=== PATIENT | female | born 1950 | race Caucasian/White ===

== ENCOUNTER 2017-12-17 15:53 | Emergency (ER) | payer OTHER ==
[~2017-12-17] VITALS: Ht 167.6 cm; Wt 81.6 kg
[2017-12-17 16:00] VITALS: BP_SYST 163
[2017-12-17] MEDS ORDERED: DIPHENHYDRAMINE HCL 25 MG CAPSULE PO ONE (16:15)
[2017-12-17 16:20] LABS: BILIRUBIN,URINE NEGATIVE (NEGATIVE); CLARITY/URINE CLOUDY (CLEAR); COLOR,URINE YELLOW (YELLOW); GLUCOSE,URINE NEGATIVE (NEGATIVE); KETONES,URINE TRACE (NEGATIVE); LEUKOCYTE ESTERASE ,URINE 3+ (NEGATIVE); NITRITE, URINE NEGATIVE (NEGATIVE); PROTEIN URINE 1+ (NEGATIVE); UROBILINOGEN,URINE 0.2 (0.2-1.0)
[2017-12-17 16:23] LABS: BLOOD, URINE TRACE (NEGATIVE)
[2017-12-17 16:40] LABS: BACTERIA,URINE MODERATE /HPF (None Seen); WBC,URINE >100 /HPF (0-3)
[2017-12-17 16:56] LABS: BARBITURATE, URINE NEGATIVE (NEG <=200); BENZODIAZEPINE, URINE NEGATIVE (NEG <=150); CANNABINOID, URINE NEGATIVE (NEG <=50); COCAINE, URINE NEGATIVE (NEG <=150); METHAMPHETAMINES SCREEN,URINE NEGATIVE (NEG <=500); OPIATE, URINE NEGATIVE (NEG <=100); PHENCYCLIDINE SCREEN,URINE NEGATIVE (NEG <=25); UR TRICYCLIC ANTIDEPRESSANTS NEGATIVE (NEG <=300); URINE AMPHETAMINE NEGATIVE (NEG <=500); URINE METHADONE NEGATIVE (NEG <=200); URINE OXYCODONE SCREEN NEGATIVE (NEG <=100); URINE PROPOXYPHENE SCREEN NEGATIVE (NEG <=300)
[2017-12-17 16:59] LABS: BASOPHILS % (AUTO) 0.4 % (0.0-2.0); EOSINOPHILS # (AUTO) 0.1 K/uL (0.0-0.4); EOSINOPHILS % (AUTO) 2.6 % (0.0-4.0); HEMATOCRIT 33.1 % (36-48); HEMOGLOBIN 11.4 g/dL (12.0-16.0); LYMPHOCYTES # (AUTO) 0.6 K/uL (1.0-5.5); LYMPHOCYTES % (AUTO) 11.7 % (20.5-51.5); MEAN CORPUSCULAR HEMOGLOBIN 31 pg (27-31); MEAN CORPUSCULAR HGB CONC 34 % (32-36); MEAN CORPUSCULAR VOLUME 89 fL (79.0-98.0); MONOCYTES # (AUTO) 0.4 K/uL (0.0-1.0); MONOCYTES % (AUTO) 7.9 % (1.7-9.3); NEUTROPHILS # (AUTO) 4.2 K/uL (1.8-7.7); NEUTROPHILS % (AUTO) 77.4 % (40.0-70.0); PLATELET COUNT (AUTO) 188 K/uL (130-430); RED BLOOD CELL COUNT(AUTO) 3.73 MIL/uL (4.2-6.2); WHITE BLOOD COUNT (AUTO) 5.3 K/uL (4.8-10.8)
[2017-12-17 17:07] LABS: CALCIUM 9.2 mg/dL (8.4-11.0); CREATININE 0.96 mg/dL (0.55-1.30); POTASSIUM 4.2 mmol/L (3.5-5.1)
[2017-12-17 17:11] LABS: ALBUMIN 3.5 g/dL (3.4-4.8); TOTAL BILIRUBIN 0.5 mg/dL (0.0-1.0)
[2017-12-17 17:13] LABS: PROTHROMBIN TIME 10.6 SECS (9.5-12.5)
[2017-12-17] MEDS ORDERED: cefTRIAXone 1 GM in LIDOCAINE 1%, 20 ML MDV 2.1 ML IM ONE (17:45)
[2017-12-17 18:35] VITALS: BP_SYST 146
== END 2017-12-17 18:35 | disposition home or self-care (01) ==
LOC: SED 15:53
DX: N39.0 Urinary tract infection, site not specified (principal); F32.9 Major depressive disorder, single episode, unspecified; I10 Essential (primary) hypertension
CPT/HCPCS: 36415; 70450; 71045; 80053; 80307; 81000; 84484; 85025; 85610; 85730; 87086; 87186; 93005; 96372; 99285; G0481; J0696; J2001; Q0163

== ENCOUNTER 2019-05-27 18:51 | Emergency (ER) | payer OTHER, MEDICAID ==
[~2019-05-27] VITALS: Ht 167.6 cm; Wt 73.5 kg
[2019-05-27 19:10] VITALS: BP_SYST 151
--- NOTE | 2019-05-27 19:10 | NUR ---
PAtient waiting for placement in [facility]
--- NOTE | 2019-05-27 19:22 | NUR ---
Patient to ER bed 06 to gown for evaluation. Side rails up. Report given to ARMANDO Kim
--- NOTE | 2019-05-27 19:30 | NUR ---
Pt was BIB BLS for medical clearance. Per facility, pt has increase in depression and tends to isolate herself from others. Pt denies pain, N/V, fever. Per pt, "I'm very shakey and my back itches." No other injuries/complaints per patient or noted.
[2019-05-27 20:37] LABS: BASOPHILS % (AUTO) 0.9 % (0.0-2.0); EOSINOPHILS % (AUTO) 0.9 % (0.0-4.0); HEMATOCRIT 36.1 % (36-48); HEMOGLOBIN 12.1 g/dL (12.0-16.0); LYMPHOCYTES # (AUTO) 0.5 K/uL (1.0-5.5); LYMPHOCYTES % (AUTO) 9.5 % (20.5-51.5); MEAN CORPUSCULAR HEMOGLOBIN 32 pg (27-31); MEAN CORPUSCULAR HGB CONC 34 % (32-36); MEAN CORPUSCULAR VOLUME 95 fL (79.0-98.0); MONOCYTES # (AUTO) 0.3 K/uL (0.0-1.0); MONOCYTES % (AUTO) 6.8 % (1.7-9.3); NEUTROPHILS # (AUTO) 4.2 K/uL (1.8-7.7); NEUTROPHILS % (AUTO) 81.9 % (40.0-70.0); PLATELET COUNT (AUTO) 199 K/uL (130-430); RED BLOOD CELL COUNT(AUTO) 3.79 MIL/uL (4.2-6.2); RED CELL DISTRIBUTION WIDTH 14.5 % (9.0-15.0); WHITE BLOOD COUNT (AUTO) 5.1 K/uL (4.8-10.8)
[2019-05-27 20:48] LABS: ANION GAP 5 (5-15); CALCIUM 8.9 mg/dL (8.4-11.0); CHLORIDE 106 mmol/L (98-107); CREATININE 0.95 mg/dL (0.55-1.30); GLUCOSE 112 mg/dL (70-99); POTASSIUM 4.5 mmol/L (3.5-5.1); SODIUM SERUM 140 mmol/L (136-145); UREA NITROGEN, BLOOD 26 mg/dL (8-21)
[2019-05-27 20:52] LABS: GFR AFRICAN AMERICAN 75 mL/min (>90)
[2019-05-27 20:54] LABS: ALANINE AMINOTRANSFERASE 84 U/L (12-78); ALBUMIN 3.1 g/dL (3.4-4.8); ASPARTATE AMINOTRANSFERASE 66 U/L (10-37); TOTAL BILIRUBIN 0.4 mg/dL (0.0-1.0)
[2019-05-27 20:55] LABS: ACETAMINOPHEN < 1 ug/mL (1-30); ALCOHOL, BLOOD < 3 mg/dL (<10)
--- NOTE | 2019-05-27 21:24 | NUR ---
MRSA specimen was collected and sent to lab.
[2019-05-27 21:41] LABS: BARBITURATE, URINE NEGATIVE (NEG <=200); BENZODIAZEPINE, URINE NEGATIVE (NEG <=150); CANNABINOID, URINE NEGATIVE (NEG <=50); COCAINE, URINE NEGATIVE (NEG <=150); METHAMPHETAMINES SCREEN,URINE NEGATIVE (NEG <=500); OPIATE, URINE NEGATIVE (NEG <=100); PHENCYCLIDINE SCREEN,URINE NEGATIVE (NEG <=25); UR TRICYCLIC ANTIDEPRESSANTS NEGATIVE (NEG <=300); URINE AMPHETAMINE NEGATIVE (NEG <=500); URINE METHADONE NEGATIVE (NEG <=200); URINE OXYCODONE SCREEN NEGATIVE (NEG <=100); URINE PROPOXYPHENE SCREEN NEGATIVE (NEG <=300)
[2019-05-27 22:09] LABS: BILIRUBIN,URINE NEGATIVE (NEGATIVE); BLOOD, URINE NEGATIVE (NEGATIVE); CLARITY/URINE CLEAR (CLEAR); COLOR,URINE YELLOW (YELLOW); GLUCOSE,URINE NEGATIVE (NEGATIVE); KETONES,URINE NEGATIVE (NEGATIVE); NITRITE, URINE NEGATIVE (NEGATIVE); PH,URINE 6.5 (5.0-8.0); PROTEIN URINE NEGATIVE (NEGATIVE); UROBILINOGEN,URINE 0.2 (0.2-1.0)
[2019-05-27 22:18] LABS: LEUKOCYTE ESTERASE ,URINE TRACE (NEGATIVE)
[2019-05-27 22:20] LABS: BACTERIA,URINE FEW /HPF (None Seen); MUCUS,URINE None Seen /LPF (None Seen); RBC,URINE NONE SEEN /HPF (0-3)
--- NOTE | 2019-05-27 22:25 | NUR ---
ER Dr. Stewart at bedside examining patient.
[2019-05-27 23:11] VITALS: BP_SYST 135
--- NOTE | 2019-05-27 23:14 | NUR ---
Patient to be transferred to [facility]. Is being transferred due to higher level of care. Receiving facility has accepting physician and available space. ER physician has signed transfer form. Patient or responsible democrat has agreed to transfer and signed form. Patient belongings inventoried and will be sent with patient. Copy of nursing notes, lab reports, EKG, Physicians Orders and X-rays to be sent with patient. Report called to Allyssa at receiving facility. Receiving physician is Dr. Peace and Dr. Dillon. [facility] ambulance service has been called for transfer. ETA is [id number]. VSS
== END 2019-05-27 23:14 ==
LOC: SED 18:51
DX: F32.9 Major depressive disorder, single episode, unspecified (principal); I10 Essential (primary) hypertension; Z90.49 Acquired absence of other specified parts of digestive tract
CPT/HCPCS: 36415; 71045; 80053; 80307; 81000; 85025; 87081; 93005; 99285; G0480; G0481; G0482

== ENCOUNTER 2019-05-28 14:09 | Outpatient (CLI) | payer OTHER, MEDICAID ==
[2019-05-28 14:16] LABS: CHOLESTEROL 159 mg/dL (<200); HDL CHOLESTEROL 46 mg/dL (>55); LDL CHOLESTEROL 94 mg/dL (<100); TRIGLYCERIDES 107 mg/dL (30-150)
== END 2019-05-28 20:17 | disposition home or self-care (01) ==
LOC: SLB 14:09
DX: Z00.00 Encounter for general adult medical examination without abnormal findings (principal); R79.89 Other specified abnormal findings of blood chemistry
CPT/HCPCS: 36415; 80061; 83036

== ENCOUNTER 2019-07-10 16:31 | Inpatient (IN) | payer OTHER, MEDICAID ==
[~2019-07-10] VITALS: Ht 170.2 cm; Wt 99.3 kg
[2019-07-10 16:40] VITALS: BP_SYST 147
--- NOTE | 2019-07-10 17:25 | NUR ---
Patient is awake, alert, and oriented x4. foreman shipping department is at bedside. Caregiver states they were at [facility] and were instructed to come in to rule out DVT. Patient is complaining of SOB, 02 sat is 98% on room air. Patient presents with BLE 3+ pitting edema.
[2019-07-10 17:38] LABS: BILIRUBIN,URINE NEGATIVE (NEGATIVE); BLOOD, URINE 1+ (NEGATIVE); CLARITY/URINE SL CLOUDY (CLEAR); COLOR,URINE YELLOW (YELLOW); GLUCOSE,URINE NEGATIVE (NEGATIVE); KETONES,URINE TRACE (NEGATIVE); LEUKOCYTE ESTERASE ,URINE 2+ (NEGATIVE); NITRITE, URINE POSITIVE (NEGATIVE); PROTEIN URINE 2+ (NEGATIVE); UROBILINOGEN,URINE 0.2 (0.2-1.0)
[2019-07-10] MEDS ORDERED: IBUPROFEN 400 MG TABLET PO ONE (17:45)
[2019-07-10 17:54] LABS: BACTERIA,URINE MANY /HPF (None Seen); MUCUS,URINE None Seen /LPF (None Seen); RBC,URINE 0-3 /HPF (0-3); WBC,URINE >100 /HPF (0-3)
--- NOTE | 2019-07-10 17:54 | NUR ---
3 unsuccessful IV attempts made. Renetta Tellez RN made aware.
--- NOTE | 2019-07-10 17:55 | NUR ---
Plebotomy at bedside.
--- NOTE | 2019-07-10 18:00 | NUR ---
US tech at bedside.
[2019-07-10 18:25] LABS: BASOPHILS % (AUTO) 0.2 % (0.0-2.0); EOSINOPHILS # (AUTO) 0.1 K/uL (0.0-0.4); HEMATOCRIT 26.9 % (36-48); HEMOGLOBIN 9.2 g/dL (12.0-16.0); LYMPHOCYTES # (AUTO) 0.4 K/uL (1.0-5.5); LYMPHOCYTES % (AUTO) 6.8 % (20.5-51.5); MEAN CORPUSCULAR HEMOGLOBIN 33 pg (27-31); MEAN CORPUSCULAR HGB CONC 34 % (32-36); MEAN CORPUSCULAR VOLUME 96 fL (79.0-98.0); MONOCYTES # (AUTO) 0.8 K/uL (0.0-1.0); MONOCYTES % (AUTO) 12.9 % (1.7-9.3); NEUTROPHILS # (AUTO) 4.7 K/uL (1.8-7.7); NEUTROPHILS % (AUTO) 79.1 % (40.0-70.0); PLATELET COUNT (AUTO) 235 K/uL (130-430); RED BLOOD CELL COUNT(AUTO) 2.82 MIL/uL (4.2-6.2); RED CELL DISTRIBUTION WIDTH 13.4 % (9.0-15.0); WHITE BLOOD COUNT (AUTO) 5.9 K/uL (4.8-10.8)
[2019-07-10] MEDS ORDERED: LEVOFLOXACIN 500 MG/D5W 100 ML IV ONE (18:30)
[2019-07-10 18:38] LABS: PROTHROMBIN TIME 10.3 SECS (9.5-12.5)
[2019-07-10 18:40] LABS: CALCIUM 8.3 mg/dL (8.4-11.0); CREATININE 0.93 mg/dL (0.55-1.30); POTASSIUM 3.4 mmol/L (3.5-5.1)
[2019-07-10 18:47] LABS: ALBUMIN 2.9 g/dL (3.4-4.8); TOTAL BILIRUBIN 0.6 mg/dL (0.0-1.0)
--- NOTE | 2019-07-10 19:28 | NUR ---
Patient will be admitted to care of Dr. Huston. Admitted to telemetry unit. Waiting for room assignment. Belongings list completed.
--- NOTE | 2019-07-10 19:30 | NUR ---
RECIEVED REPORT FROM 7 AM RN. PT IN NAD. PENDING ADMIT DISPOSITION.
--- NOTE | 2019-07-10 19:30 | NUR ---
All care endorsed to ARMANDO Cho for continuation of care.
[2019-07-10] MEDS ORDERED: NACL 0.9% 3,000 ML IV ONE (20:00)
--- NOTE | 2019-07-10 20:22 | NUR ---
Per Telemetry floor, patient to go to room 119B. Give 15 minutes before taking, they are getting the room ready.
--- NOTE | 2019-07-10 20:25 | NUR ---
Patient will be admitted to care of Radha ROBERTS. Admitted to MST unit. Will go to room 119. Belongings list completed. Complete and up to date summary report printed. SBAR Report called to MST unit RN x [phone] with opportunity for questions. Patient taken to floor by nursing material handling crew supervisor.
--- NOTE | 2019-07-10 20:40 | NUR ---
ADMISSION NOTE Received patient from ER via gurney. Patient admitted with diagnosis of uti, sepsis. Patient oriented to hospital room, call light, toileting, pain management and safety-teach back done. Personal belongings checked and Belongings List documented. Call light within reach.
[2019-07-10 21:10] VITALS: BP_SYST 125
--- NOTE | 2019-07-10 21:26 | NUR ---
Patient admitted to 119B. No acute distress noted. Skin warm dry and intact. Rash noted to patient's skin over the entire body. No complaint of pain or discomfort. Will continue to monitor.
[2019-07-10] MEDS ORDERED: ASCO500T20 PO (22:39)
[2019-07-10] MEDS ORDERED: SERT-131 PO (22:39)
[2019-07-10] MEDS ORDERED: LOVA40TA75 PO (22:39)
[2019-07-10] MEDS ORDERED: LISI10TA5 PO (22:39)
[2019-07-10] MEDS ORDERED: ONDANSETRON HCL 4 MG/2 ML VIAL IVP PRN (23:15)
[2019-07-10] MEDS ORDERED: ACETAMINOPHEN 325 MG TABLET PO PRN (23:15)
[2019-07-10] MEDS ORDERED: cefTRIAXone 1 GM IVPB PREMIX 50 ML IV SCH (23:15)
[2019-07-10] MEDS ORDERED: OMEP20CA11 PO (23:35)
[2019-07-10] MEDS ORDERED: HYDC1% TP (23:35)
[2019-07-10] MEDS ORDERED: CLOB15CR4 TP (23:35)
[2019-07-11 00:12] VITALS: BP_SYST 103
[2019-07-11 00:32] VITALS: BP_SYST 103
[2019-07-11] MEDS ORDERED: cefTRIAXone 1 GM IVPB PREMIX 50 ML IV ONE (00:38)
[2019-07-11] MEDS ORDERED: FLU VACC TS2019(65UP)/MF59C/PF 45 MCG/0.5 ML SYRINGE I.M. PRN (03:45)
[2019-07-11] MEDS: HYDROcodone/ACETAMIN 10-325 MG TAB PO PRN ×2 (04:49→12:35)
[2019-07-11 06:48] LABS: ALANINE AMINOTRANSFERASE 54 U/L (12-78); ALBUMIN 2.5 g/dL (3.4-4.8); ANION GAP 9 (5-15); ASPARTATE AMINOTRANSFERASE 39 U/L (10-37); CALCIUM 7.9 mg/dL (8.4-11.0); CHLORIDE 104 mmol/L (98-107); CREATININE 0.88 mg/dL (0.55-1.30); GLUCOSE 95 mg/dL (70-99); POTASSIUM 3.5 mmol/L (3.5-5.1); SODIUM SERUM 139 mmol/L (136-145); TOTAL BILIRUBIN 0.6 mg/dL (0.0-1.0); UREA NITROGEN, BLOOD 12 mg/dL (8-21)
[2019-07-11 07:09] LABS: BASOPHILS % (AUTO) 0.2 % (0.0-2.0); EOSINOPHILS # (AUTO) 0.1 K/uL (0.0-0.4); EOSINOPHILS % (AUTO) 1.2 % (0.0-4.0); HEMATOCRIT 25.6 % (36-48); HEMOGLOBIN 8.7 g/dL (12.0-16.0); LYMPHOCYTES # (AUTO) 0.2 K/uL (1.0-5.5); LYMPHOCYTES % (AUTO) 4.8 % (20.5-51.5); MEAN CORPUSCULAR HEMOGLOBIN 33 pg (27-31); MEAN CORPUSCULAR HGB CONC 34 % (32-36); MEAN CORPUSCULAR VOLUME 96 fL (79.0-98.0); MONOCYTES # (AUTO) 0.7 K/uL (0.0-1.0); MONOCYTES % (AUTO) 14.9 % (1.7-9.3); NEUTROPHILS # (AUTO) 3.9 K/uL (1.8-7.7); NEUTROPHILS % (AUTO) 78.9 % (40.0-70.0); PLATELET COUNT (AUTO) 190 K/uL (130-430); RED BLOOD CELL COUNT(AUTO) 2.68 MIL/uL (4.2-6.2); RED CELL DISTRIBUTION WIDTH 13.6 % (9.0-15.0); WHITE BLOOD COUNT (AUTO) 4.9 K/uL (4.8-10.8)
[2019-07-11 07:17] LABS: INR 1.1 (0.8-1.2); PROTHROMBIN TIME 10.8 SECS (9.5-12.5)
[2019-07-11 07:21] LABS: GFR AFRICAN AMERICAN 82 mL/min (>90)
[2019-07-11 08:05] LABS: TOTAL IRON BIND. CAPACITY 217 ug/dL (250-450)
[2019-07-11 08:10] VITALS: BP_SYST 134
[2019-07-11] MEDS: SERTRALINE HCL 50 MG TABLET PO SCH (09:59)
[2019-07-11] MEDS: cefTRIAXone 1 GM IVPB PREMIX 50 ML IV SCH ×2 (10:00→22:58)
[2019-07-11] MEDS: LISINOPRIL 10 MG TABLET (PRINIVIL) PO SCH (10:00)
[2019-07-11] MEDS: ENOXAPARIN SODIUM 40 MG/0.4 ML SYRINGE SUBCUT SCH (10:03)
[2019-07-11 12:35] VITALS: BP_SYST 90
[2019-07-11 16:05] VITALS: BP_SYST 107
[2019-07-11] MEDS: ATORVASTATIN 10 MG TABLET PO SCH (17:52)
--- NOTE | 2019-07-11 17:53 | NUR ---
Routine Patient eating dinner with no complaint of leg pain. Scheduled medication given. Patient stable at this time.
[2019-07-11] MEDS ORDERED: LOVASTATIN 20 MG TABLET PO SCH (18:00)
[2019-07-12] MEDS: cefTRIAXone 1 GM IVPB PREMIX 50 ML IV SCH ×2 (08:49→20:29)
[2019-07-12] MEDS: LISINOPRIL 10 MG TABLET (PRINIVIL) PO SCH (08:49)
[2019-07-12] MEDS: SERTRALINE HCL 50 MG TABLET PO SCH (08:49)
--- NOTE | 2019-07-12 08:50 | NUR ---
Routine Patient eating breakfast with no complaint of leg pain. Scheduled po meds and IV abx given per order. Patient stable at this time.
[2019-07-12] MEDS: ENOXAPARIN SODIUM 40 MG/0.4 ML SYRINGE SUBCUT SCH (08:54)
[2019-07-12 08:55] VITALS: BP_SYST 100
[2019-07-12 12:29] VITALS: BP_SYST 138
--- NOTE | 2019-07-12 15:56 | NUR ---
Dietitian Recommendations * Recommend continuing cardiac diet * Encourage increase PO intakes LP, RD Please refer to Nutrition Assessment for details. Addendum: 07/12/19 at [address] Amended: Links added.
--- NOTE | 2019-07-12 16:35 | NUR ---
Routine Patient asleep with no distress noted. Patient stable at this time.
[2019-07-12 16:38] VITALS: BP_SYST 134; BP_SYST 152
[2019-07-12] MEDS: ATORVASTATIN 10 MG TABLET PO SCH (17:31)
--- NOTE | 2019-07-12 17:32 | NUR ---
Routine Patient resting comfortably in bed with no complaint of leg pain. Scheduled medication given per order. Patient stable at this time.
--- NOTE | 2019-07-12 19:30 | NUR ---
OPENING NOTES Patient is resting, no signs of acute respiratory distress. IV site patent, dressings c/d/i. Will continue to monitor.
[2019-07-12 20:00] VITALS: BP_SYST 144
--- NOTE | 2019-07-12 20:21 | NUR ---
PHYSICAL THERAPY CO-SIGN The Physical Therapy Progress Notes documented by Engineering Technician Parking have been reviewed. Reviewed/Co-Signed by: Moni Jhaveri PT Documentation Done by:ALEXSANDRA PEDRO EMERGENCY PREPAREDNESS COORDINATOR WILL BENEFIT W/ P.T. POST ACUTE STAY Addendum: 07/13/19 at 1329 by Moni Jhaveri PT Amended: Links added.
[2019-07-12] MEDS: HYDROcodone/ACETAMIN 10-325 MG TAB PO PRN (20:42)
--- NOTE | 2019-07-12 22:40 | NUR ---
Patient is restless, assisted to bedpan and wants to go to the restroom, but patient states that she does not feel like getting up. Will continue to monitor.
[2019-07-13] VITALS: BP_SYST 96
--- NOTE | 2019-07-13 01:20 | NUR ---
Assisted patient to bedpan, adonay care provided. Will continue to monitor.
[2019-07-13] MEDS: ALBUTEROL SULFATE 0.083% 2.5 MG/3 ML VIAL.NEB INH PRN (03:54)
--- NOTE | 2019-07-13 07:30 | NUR ---
CLOSING NOTES Patient is resting, no signs of acute respiratory distress. IV site, dressings c/d/i, patent, saline lock. All needs met throughout shift. Will continue to monitor.
--- NOTE | 2019-07-13 07:35 | NUR ---
Opening Note Patient received resting comfortably in bed @ this time. Patient in no signs of distress. Patient does not complain of pain. Patient assessed and reinforced education regarding use of call light. Safety precautions enforced.
[2019-07-13 08:00] VITALS: BP_SYST 160
[2019-07-13] MEDS: SERTRALINE HCL 50 MG TABLET PO SCH (09:28)
[2019-07-13] MEDS: ENOXAPARIN SODIUM 40 MG/0.4 ML SYRINGE SUBCUT SCH (09:28)
[2019-07-13] MEDS: cefTRIAXone 1 GM IVPB PREMIX 50 ML IV SCH ×2 (09:29→20:38)
[2019-07-13] MEDS: LISINOPRIL 10 MG TABLET (PRINIVIL) PO SCH (09:29)
--- NOTE | 2019-07-13 10:00 | NUR ---
Patient resting in bed at this time with no signs of distress noted. Patient does not complain of pain.
[2019-07-13 12:00] VITALS: BP_SYST 121
--- NOTE | 2019-07-13 12:00 | NUR ---
Patient resting in bed at this time. A right wrist 22 gauge IV inserted and is patent, flushing well, and saline locked. Patient does not complain of pain. Patient in no signs of distress.
--- NOTE | 2019-07-13 13:31 | NUR ---
PHYSICAL THERAPY CO-SIGN The Physical Therapy Progress Notes documented by Band Cutting Machine Operator have been reviewed. Reviewed/Co-Signed by: Moni Jhaveri PT Documentation Done by:ALEXSANDRA PEDRO COTTON WASHER WILL BENEFIT W/ P.T. POST ACUTE STAY Addendum: 07/13/19 at 1332 by Moni Jhaveri PT Amended: Links added.
--- NOTE | 2019-07-13 14:00 | NUR ---
Patient sleeping at this time. Patient does not complain of pain. Patient reoriented to the use of call light if in need to ambulate to the bathroom. Patient verbalized understanding.
--- NOTE | 2019-07-13 16:00 | NUR ---
Patient resting comfortably. Patient assisted to ADLs. Patient in no signs of distress.
[2019-07-13 16:08] VITALS: BP_SYST 135
[2019-07-13] MEDS: ATORVASTATIN 10 MG TABLET PO SCH (17:23)
--- NOTE | 2019-07-13 18:41 | NUR ---
Closing Note Patient resting comfortably in bed. Patient in no signs of distress. Patient does not complain of pain.
--- NOTE | 2019-07-13 19:21 | NUR ---
Endorsement Patient endorsed to overnight babysitter RN using SBAR format.
--- NOTE | 2019-07-13 19:22 | NUR ---
OPENING NOTE RECEIVED CARE OF PT AND SBAR REPORT. PT IS RESTING IN BED, NO S/S OF ACUTE DISTRESS, BREATHING IS UNLABORED TO ROOM AIR, NO SOB NOTED. IV IS SALINE LOCKED. SKIN IS WARM AND DRY TO TOUCH. SAFETY AND FALL PRECAUTIONS ARE IN PLACE:BED IS LOCKED IN LOWEST POSITION, SIDE RAILS X2, CALL LIGHT WITH PT, BED ALARM ON. WILL MONITOR.
[2019-07-13 20:00] VITALS: BP_SYST 128
[2019-07-13] MEDS: HYDROcodone/ACETAMIN 10-325 MG TAB PO PRN (20:46)
--- NOTE | 2019-07-13 20:48 | NUR ---
FLU SHOT/NORCO PT GIVEN FLU SHOT PER REQUEST. PT ALSO GIVEN NORCO 10-325 MG PO FOR REPORT OF SEVERE ABDOMINAL PAIN. MEDICATION ACTIONS AND POTENTIAL SIDE EFFECTS DISCUSSED. PT CONFUSED. PT BROUGHT FRESH ICE WATER PER REQUEST. PT DENIES FURTHER NEEDS AT THIS TIME. SAFETY PRECAUTIONS IN PLACE. WILL MONITOR.
--- NOTE | 2019-07-13 22:50 | NUR ---
RESTING PT RESTING IN BED, NO S/S OF ACUTE DISTRESS, BREATHING IS UNLABORED TO ROOM AIR. PT APPEARS COMFORTABLE AT THIS TIME, NO SIGNS OF PAIN OR DISCOMFORT. SAFETY PRECAUTIONS MAINTAINED. WILL MONITOR.
--- NOTE | 2019-07-14 00:53 | NUR ---
SLEEPING PT RESTING IN BED, NO S/S OF ACUTE DISTRESS, VISIBLE SYMMETRICAL RISE AND FALL OF CHEST NOTED, BREATHING IS UNLABORED TO ROOM AIR. PT APPEARS COMFORTABLE AT THIS TIME WITH NO SIGNS OF PAIN OR DISCOMFORT. SAFETY PRECAUTIONS OBSERVED. WILL MONITOR.
[2019-07-14 01:28] VITALS: BP_SYST 110
--- NOTE | 2019-07-14 02:53 | NUR ---
AMBULATED TO RESTROOM PT AMBULATED TO RESTROOM WITH NURSE ASSIST. PT'S GAIT NOTED TO BE STEADY. PT RETURNED TO BED AND ABLE TO REPOSITION HERSELF FOR COMFORT. PT TOLERATED ACTIVITY WELL. NO S/S OF DISTRESS. NO SOB NOTED. SAFETY AND FALL PRECAUTIONS ARE IN PLACE. BED ALARM IS ON. WILL MONITOR.
[2019-07-14] MEDS: HYDROcodone/ACETAMIN 5-325 MG TAB (NORCO/ VICODIN) PO PRN ×2 (04:34→13:32)
[2019-07-14] MEDS: ALBUTEROL SULFATE 0.083% 2.5 MG/3 ML VIAL.NEB INH PRN ×3 (04:36→13:23)
--- NOTE | 2019-07-14 04:40 | NUR ---
PAIN/BREATHING TREATMENT. PT GIVEN NORCO 5-325 MG PO FOR REPORT OF MODERATE PAIN TO BILATERAL LEGS. PT ALSO REPORTING SOB. RESPIRATORY THERAPIST CALLED FOR BREATHING TREATMENT. SAFETY MAINTAINED. WILL MONITOR.
--- NOTE | 2019-07-14 06:53 | NUR ---
CLOSING NOTE PT IS RESTING IN BED, NO S/S OF ACUTE DISTRESS, BREATHING IS UNLABORED TO ROOM AIR, NO SOB NOTED. IV IS SALINE LOCKED. SKIN IS WARM AND DRY TO TOUCH. SAFETY AND FALL PRECAUTIONS ARE IN PLACE:BED IS LOCKED IN LOWEST POSITION, SIDE RAILS X2, CALL LIGHT WITH PT, BED ALARM ON. WILL ENDORSE CARE TO DAY SHIFT RN.
--- NOTE | 2019-07-14 07:15 | NUR ---
AM ASSESSMENT Pt received from night RN using SBAR. Pt received laying in bed with eyes open. Bed in lowest position with call light within reach, no signs of acute distress. Will continue to monitor.
[2019-07-14 08:00] VITALS: BP_SYST 141
[2019-07-14] MEDS: SERTRALINE HCL 50 MG TABLET PO SCH (08:44)
[2019-07-14] MEDS: cefTRIAXone 1 GM IVPB PREMIX 50 ML IV SCH (08:44)
[2019-07-14] MEDS: LISINOPRIL 10 MG TABLET (PRINIVIL) PO SCH (08:44)
[2019-07-14] MEDS: HYDROcodone/ACETAMIN 10-325 MG TAB PO PRN (08:45)
[2019-07-14] MEDS: ENOXAPARIN SODIUM 40 MG/0.4 ML SYRINGE SUBCUT SCH (08:48)
--- NOTE | 2019-07-14 09:09 | NUR ---
RT Pt is experiencing wheezing, RT is at bedside administering a breathing TX.
[2019-07-14 10:32] VITALS: BP_SYST 110
[2019-07-14] MEDS ORDERED: LEVO500T89 PO (10:54)
--- NOTE | 2019-07-14 12:03 | NUR ---
PATIENT RESTING: Patient resting quietly. No acute distress noted. Vital signs within normal range.
--- NOTE | 2019-07-14 12:38 | NUR ---
SAFETY LAMP KEEPER Called and spoke with Karin Candelaria, the patient's person to notify and informed her that the patient is being discharged back home to her Board and Care. Karin stated that her courier driver Jessica [phone] will picking supervisor the pt between [phone]. Informed Karin that sent a prescription of Levaquin to her pharmacy.
[2019-07-14 12:49] VITALS: BP_SYST 108
[2019-07-14 13:19] VITALS: BP_SYST 108
--- NOTE | 2019-07-14 14:18 | NUR ---
D/C Patient Patient given medication reconciliation form and D/C instructions. Exit Care provided. Patient and childcare attendant armor reconnaissance vehicle driver verbalized understanding. MD discussed with patient the results and treatment provided. Ambulatory with steady gait for discharge to home. Patient in stable condition, ID band removed. IV catheter removed, intact and dressing applied, no active bleeding. Rx electronically provided to pt. Patient educated on pain management. All belongings sent with patient.
== END 2019-07-14 14:19 | disposition home or self-care (01) | DRG 871 ==
LOC: SED 16:31 → STU 19:25 → SMU 07-14 10:41
PROVIDERS: ADMIT Internal Medicine Hospice and Palliative Medicine; ATTEND Internal Medicine Hospice and Palliative Medicine
DX: A41.9 Sepsis, unspecified organism (principal); E43 Unspecified severe protein-calorie malnutrition; N39.0 Urinary tract infection, site not specified; D64.9 Anemia, unspecified; M79.89 Other specified soft tissue disorders; E87.6 Hypokalemia; I10 Essential (primary) hypertension; F32.9 Major depressive disorder, single episode, unspecified; Z68.34 Body mass index [BMI] 34.0-34.9, adult; Z79.899 Other long term (current) drug therapy
CPT/HCPCS: 36415; 71045; 80053; 81000-TC; 83540-TC; 83550-TC; 83605; 83880; 84484; 85025; 85379; 85610-TC; 86710; 87040-TC; 87086; 87186-TC; 93005; 93306; 93970; 94640; 94760; 96365; 97110-GP; 97112-GP; 97116-GP; 97530-GP; 99291; G0378; J0696; J1650; J1956; J7030; J7613

== ENCOUNTER 2019-08-20 13:35 | Inpatient (IN) | payer OTHER ==
[2019-08-20] VITALS (7 sets, daily range): BP systolic 88–138
[~2019-08-20] VITALS: Ht 162.6 cm; Wt 72.1 kg
[~2019-08-20 13:35] MED LIST: ASCO500T20 PO; CLOB15CR4 TP; HYDC1% TP; LEVO500T89 PO; LISI10TA5 PO; LOVA40TA75 PO; OMEP20CA11 PO; SERT-131 PO
--- NOTE | 2019-08-20 13:40 | NUR ---
Placed in room 8 . Placed on surveillance system monitor, blood pressure machine and pulse oximeter. To gown for exam. Side rails up. Report given to ARMANDO Connolly.
--- NOTE | 2019-08-20 13:42 | NUR ---
ER at bedside examining patient.
[2019-08-20] MEDS ORDERED: NACL 0.9% 2,200 ML IV ONE (13:49)
[2019-08-20] MEDS ORDERED: MELA3TAB64 PO (13:59)
[2019-08-20] MEDS ORDERED: DEXL60CA4 PO (13:59)
[2019-08-20] MEDS ORDERED: OLAN5TAB26 PO (13:59)
[2019-08-20] MEDS ORDERED: CALC1CAP19 PO (13:59)
[2019-08-20] MEDS ORDERED: PARO-63 PO (13:59)
[2019-08-20] MEDS ORDERED: MIRT30TA7 PO (13:59)
--- NOTE | 2019-08-20 13:59 | NUR ---
Medication reconciliation completed with information provided by [facility]. Any prior medication reconciliation on file was reviewed and corrected.
[2019-08-20 14:55] LABS: BASOPHILS % (AUTO) 0.1 % (0.0-2.0); EOSINOPHILS % (AUTO) 0.5 % (0.0-4.0); HEMATOCRIT 33.9 % (36-48); LYMPHOCYTES # (AUTO) 0.3 K/uL (1.0-5.5); LYMPHOCYTES % (AUTO) 3.8 % (20.5-51.5); MEAN CORPUSCULAR HEMOGLOBIN 31 pg (27-31); MEAN CORPUSCULAR HGB CONC 33 % (32-36); MEAN CORPUSCULAR VOLUME 94 fL (79.0-98.0); MONOCYTES # (AUTO) 0.6 K/uL (0.0-1.0); MONOCYTES % (AUTO) 8.4 % (1.7-9.3); NEUTROPHILS # (AUTO) 6.2 K/uL (1.8-7.7); NEUTROPHILS % (AUTO) 87.2 % (40.0-70.0); PLATELET COUNT (AUTO) 217 K/uL (130-430); RED BLOOD CELL COUNT(AUTO) 3.61 MIL/uL (4.2-6.2); RED CELL DISTRIBUTION WIDTH 14.2 % (9.0-15.0); WHITE BLOOD COUNT (AUTO) 7.1 K/uL (4.8-10.8)
[2019-08-20 15:00] LABS: CALCIUM 8.6 mg/dL (8.4-11.0); POTASSIUM 4.3 mmol/L (3.5-5.1)
[2019-08-20 15:06] LABS: ALBUMIN 2.8 g/dL (3.4-4.8); TOTAL BILIRUBIN 0.3 mg/dL (0.0-1.0)
[2019-08-20 15:08] LABS: CREATININE 9.49 mg/dL (0.55-1.30)
--- NOTE | 2019-08-20 15:27 | NUR ---
IV ACCESS STARTED IN THE LEFT HAND IN 2 ATTEMPTS WITH 25G. PT HAS MULTIPLE SKIN TEARS AND RASHES ON HER FOREHEAD THAT HAS BURNED THE HAIR OFF. PT IS COOPERATIVE AND ALERT. fLUIDS ARE INFUSING NOW.
[2019-08-20] MEDS ORDERED: MORPHINE 2 MG/ML INJ. SYRINGE IVP ONE (16:15)
--- NOTE | 2019-08-20 16:15 | NUR ---
RN OBTAINED URINE VIA BEDPAN.
[2019-08-20 16:27] LABS: BILIRUBIN,URINE NEGATIVE (NEGATIVE); BLOOD, URINE 2+ (NEGATIVE); CLARITY/URINE CLEAR (CLEAR); COLOR,URINE YELLOW (YELLOW); GLUCOSE,URINE NEGATIVE (NEGATIVE); KETONES,URINE NEGATIVE (NEGATIVE); LEUKOCYTE ESTERASE ,URINE NEGATIVE (NEGATIVE); NITRITE, URINE NEGATIVE (NEGATIVE); PH,URINE 5.5 (5.0-8.0); PROTEIN URINE NEGATIVE (NEGATIVE); UROBILINOGEN,URINE 0.2 (0.2-1.0)
[2019-08-20 16:35] LABS: BACTERIA,URINE FEW /HPF (None Seen); WBC,URINE 0-3 /HPF (0-3)
--- NOTE | 2019-08-20 16:54 | NUR ---
RN OBTAINED ORDERS FROM DR MOE TO ADMIT PT TO TELE. NOTED AND CARRIED OUT.
[2019-08-20] MEDS ORDERED: MORPHINE 2 MG/ML INJ. SYRINGE IVP PRN (17:15)
[2019-08-20] MEDS ORDERED: ONDANSETRON HCL 4 MG/2 ML VIAL IVP PRN (17:15)
--- NOTE | 2019-08-20 17:27 | NUR ---
Spoke with Dr. Peace regarding Telemetry order. Okay to change to ICU status with consults for Kvng Fofana for infectious disease, Dr. Webb for nephrology, and Dr. Surinder Fofana for cardiology. Spoke with dorian Burkchar house supervisor. Instructed to call ICU lost charge card clerk.
[2019-08-20] MEDS ORDERED: LEVOFLOXACIN 500 MG/D5W 100 ML IV ONE ×2 (17:30→20:52)
[2019-08-20] MEDS ORDERED: cefTRIAXone 1 GM IVPB PREMIX 50 ML IV ONE ×2 (17:30→20:53)
[2019-08-20] MEDS ORDERED: NOREPINEPHRINE BITARTRATE 4 MG in NS 246 ML IV ONE (17:30)
--- NOTE | 2019-08-20 17:45 | NUR ---
ADMIT TO ICU INSTEAD OF TELE. MADE AWARE OF LOW B/P. ADMIT TO ICU. NOTED AND CARRIED OUT.
--- NOTE | 2019-08-20 17:45 | NUR ---
LEVOPHED STARTED AT 8 MCG/PER MIN. B/P CAME UP AFTER 5 MINUTES TO 106/34
[2019-08-20] MEDS ORDERED: NOREPINEPHRINE 4 MG/4 ML VIAL IV ONE (17:56)
[2019-08-20] MEDS: 0.45% NACL 1,000 ML IV SCH (18:02)
--- NOTE | 2019-08-20 18:02 | NUR ---
BEGAN LEVOPHED DRIP AT 2MCG/MIN. PER JAH RIVAS TO START IV LEVOPHED AT 8MCG/MIN THEN FOLLOW PROTOCOL WITH TITRATION.
--- NOTE | 2019-08-20 18:15 | NUR ---
LEVOPHED TITRATED UP TO 10 MCG/MIN.
--- NOTE | 2019-08-20 18:30 | NUR ---
Transferred pt to ICU . face to face report given. pt stable in route.
--- NOTE | 2019-08-20 18:45 | NUR ---
Pt received from ER. Received report from CUSHION PADDER.
--- NOTE | 2019-08-20 18:55 | NUR ---
Place Pt under contact precautions due to skin condition and pending screening.
--- NOTE | 2019-08-20 19:10 | NUR ---
Endorsement to night RN using SBAR. Pt complaining of back pain. BP stable. Bed locked and in lowest position. Levophed @ 10mcg/kg/min.
--- NOTE | 2019-08-20 19:50 | NUR ---
Initial PM note Received patient after report from day shift nurse. Patient recently transferred from ER and still orders required to carry on such as placement of stahl catheter and placement of second line to accommodate infusion of vaso pressors. Levophed infusing at 10 mcg/min and ivf with 1/2 NS at 150. Patient reports wanting to have BM. will continue to monitor
--- NOTE | 2019-08-20 20:50 | NUR ---
IV PLACEMENT: # 20 gauge angiocath placed to RAC, after 1 attempt. Use of asceptic technique. Opsite placed over site. Blood return noted. Flushed with 10 cc of normal saline. No evidence of infiltration noted. Patient tolerated well.
[2019-08-21] VITALS (22 sets, daily range): BP systolic 74–158
[2019-08-21] MEDS ORDERED: NOREPINEPHRINE 4 MG/4 ML VIAL IV ONE ×2 (00:07→06:17)
[2019-08-21] MEDS ORDERED: NOREPINEPHRINE BITARTRATE 4 MG in D5W 246 ML IV PRN (00:45)
--- NOTE | 2019-08-21 01:28 | NUR ---
CONSULTATION PAGED/CALLED Reason for Consultation: Acute Renal Failure Person Who was Notified: Alejandra ayala Consulting Physician: Dr. Dunhma Sewer Pipe Layer Specialty: Nephrology Ordering Physician: Dr. Peace
--- NOTE | 2019-08-21 01:28 | NUR ---
CONSULTATION PAGED/CALLED Reason for Consultation: R/O SEPSIS Person Who was Notified: Maryuri MAGUIRE Consulting Physician: Dr Alexi Fofana Agriculture Intern Specialty: ID Ordering Physician: Dr Peace
--- NOTE | 2019-08-21 01:28 | NUR ---
CONSULTATION PAGED/CALLED Reason for Consultation: Low BP Person Who was Notified: Alejandra ayala Consulting Physician: Dr. Cristobal Fofana Cold Patcher Specialty: Cardiology Ordering Physician: Dr Peace
[2019-08-21] MEDS: 0.45% NACL 1,000 ML IV SCH (01:38)
[2019-08-21] MEDS ORDERED: NS 500 ML IV SCH (03:00)
[2019-08-21] MEDS ORDERED: SODIUM BICARBONATE 8.4% JECT 50 MEQ/50 ML SYRINGE IVP ONE ×2 (04:00→13:15)
[2019-08-21] MEDS: SODIUM BICARBONATE 8.4% JECT 50 MEQ in 0.45% NACL 1,000 ML IV SCH ×3 (04:00→23:46)
[2019-08-21] MEDS ORDERED: SODIUM BICARBONATE 8.4% VIAL 50 MEQ/50 ML VIAL ONE (04:12)
[2019-08-21] MEDS ORDERED: SODIUM BICARBONATE 8.4% JECT 50 MEQ/50 ML SYRINGE ONE (04:12)
--- NOTE | 2019-08-21 07:20 | NUR ---
Opening Note Patient received awake in bed connected to security monitor. Patient on room air at this time. Patient has a peripheral IV, awaiting midline insertion. Patient has a stahl catheter in place. Patient in no signs of distress at this time. Patient does not complain of pain. Safety precautions enforced.
--- NOTE | 2019-08-21 08:10 | NUR ---
MD Minna Gonzalez at bedside for examination. No orders received. Addendum: 08/21/19 at 1607 by Marilee Brand RN Incorrect patient.
[2019-08-21 08:49] LABS: LYMPHOCYTES # (AUTO) 0.2 K/uL (1.0-5.5); MEAN CORPUSCULAR HEMOGLOBIN 31 pg (27-31); MEAN CORPUSCULAR HGB CONC 33 % (32-36); MEAN CORPUSCULAR VOLUME 93 fL (79.0-98.0); MONOCYTES # (AUTO) 0.4 K/uL (0.0-1.0); NEUTROPHILS # (AUTO) 2.9 K/uL (1.8-7.7)
[2019-08-21 08:59] LABS: CALCIUM 7.4 mg/dL (8.4-11.0); CREATININE 8.28 mg/dL (0.55-1.30)
[2019-08-21 09:00] LABS: INR 1.4 (0.8-1.2); PROTHROMBIN TIME 13.8 SECS (9.5-12.5)
[2019-08-21 09:05] LABS: BASOPHILS % (AUTO) 0.1 % (0.0-2.0); HEMATOCRIT 32.4 % (36-48); HEMOGLOBIN 10.7 g/dL (12.0-16.0); LYMPHOCYTES % (AUTO) 6.1 % (20.5-51.5); MONOCYTES % (AUTO) 10.9 % (1.7-9.3); NEUTROPHILS % (AUTO) 81.9 % (40.0-70.0); PLATELET COUNT (AUTO) 184 K/uL (130-430); RED BLOOD CELL COUNT(AUTO) 3.48 MIL/uL (4.2-6.2); RED CELL DISTRIBUTION WIDTH 14.2 % (9.0-15.0); WHITE BLOOD COUNT (AUTO) 3.6 K/uL (4.8-10.8)
[2019-08-21 09:53] LABS: TOTAL BILIRUBIN 0.2 mg/dL (0.0-1.0)
[2019-08-21 09:54] LABS: ALBUMIN 2.3 g/dL (3.4-4.8); PHOSPHORUS 5.2 mg/dL (2.7-4.5); THYROID STIMULATING HORMONE 0.99 uIu/mL (0.36-3.74)
--- NOTE | 2019-08-21 11:37 | NUR ---
PICC line RN at bedside for midline placement. Addendum: 08/21/19 at 1229 by Marilee Brand RN PICC line placement.
--- NOTE | 2019-08-21 12:00 | NUR ---
RN Rounds Patient lethargic in bed resting at this time. Patient in no signs of distress, blood pressure closely monitored. Patient does not complain of pain. Safety precautions enforced.
[2019-08-21] MEDS: NOREPINEPHRINE BITARTRATE 4 MG in D5W 246 ML IV PRN ×5 (12:27→23:46)
--- NOTE | 2019-08-21 13:00 | NUR ---
MD Minna Vital at bedside for examination. New orders received. Addendum: 08/21/19 at 1606 by Marilee Brand RN Incorrect patient.
--- NOTE | 2019-08-21 13:30 | NUR ---
MD Rounds Dr. Webb at bedside for examination. New orders received.
--- NOTE | 2019-08-21 13:30 | NUR ---
Skin assessment/wound care Patient skin tear/wound cleansed and dressed with c/d/i dressing. Patient tolerated well.
--- NOTE | 2019-08-21 13:40 | NUR ---
Dr. Webb informed regarding low temperature and use of arlen hugger at this time.
[2019-08-21] MEDS ORDERED: GLUCOSE 15 GM GEL (in 37.5 GM TUBE) PO PRN (14:30)
[2019-08-21] MEDS ORDERED: DEXTROSE 50%-WATER 50 ML DISP.SYRIN IVP PRN (14:30)
[2019-08-21] MEDS ORDERED: D5W 1,000 ML IV PRN (14:30)
[2019-08-21] MEDS: INSULIN REGULAR, HUMAN 100 UNITS/ML, 10 ML VIAL (humuLIN R) SUBCUT PRN (17:48)
--- NOTE | 2019-08-21 19:25 | NUR ---
PM SHIFT ASSESSMENT Pt is awake but confused. Pt is on RA, SR on monitor. Multiple wounds noted, dressing in place. Em catheter in place and draining to gravity. WADE PICC with IVF infusing. Safety precautions in place, call light within reach. Will continue to monitor.
--- NOTE | 2019-08-21 19:40 | NUR ---
Spoke to Dr. Surinder Fofana, made MD aware that patient is on the maximum drip rate of Levophed and BP is below 90 SBP. Orders received.
--- NOTE | 2019-08-21 19:44 | NUR ---
Closing Note Endorsed to house decorator RN using SBAR format. Patient resting at this time.
[2019-08-21] MEDS ORDERED: PHENYLEPHRINE HCL 10 MG/ML VIAL (NEOSYNEPHRINE) ONE (20:36)
[2019-08-21] MEDS ORDERED: cefTRIAXone 1 GM in D5W 50 ML IV SCH (21:00)
[2019-08-21] MEDS: PHENYLEPHRINE HCL 30 MG in NS 247 ML IV PRN (21:28)
[2019-08-22] VITALS (27 sets, daily range): BP systolic 88–128
[2019-08-22] MEDS ORDERED: LORazepam 2 MG/ML VIAL IVP PRN ×2 (00:30→17:45)
[2019-08-22] MEDS ORDERED: SODIUM BICARBONATE 8.4% JECT 50 MEQ/50 ML SYRINGE ONE (00:41)
--- NOTE | 2019-08-22 00:45 | NUR ---
Spoke to Dr. Kobi MD aware that patient is attempting to get out of bed multiple times and is very confused. Orders for ativan, SCDs and flexiseal given.
[2019-08-22] MEDS ORDERED: LORazepam 2 MG/ML VIAL ONE (00:53)
[2019-08-22] MEDS: NOREPINEPHRINE BITARTRATE 4 MG in D5W 246 ML IV PRN ×10 (01:46→22:04)
[2019-08-22] MEDS ORDERED: NOREPINEPHRINE 4 MG/4 ML VIAL IV ONE ×3 (01:46→05:03)
[2019-08-22] MEDS: PHENYLEPHRINE HCL 30 MG in NS 247 ML IV PRN ×6 (02:05→20:55)
[2019-08-22] MEDS: SODIUM BICARBONATE 8.4% JECT 50 MEQ in D5/0.45 NS 1,000 ML IV SCH ×2 (02:06→08:39)
[2019-08-22] MEDS ORDERED: PHENYLEPHRINE HCL 10 MG/ML VIAL (NEOSYNEPHRINE) ONE ×3 (02:15→08:54)
--- NOTE | 2019-08-22 04:30 | NUR ---
FLEXISEAL Flexiseal inserted, pt tolerated care well. Sample collected for CDIFF.
[2019-08-22 06:07] LABS: HEMATOCRIT 30.8 % (36-48); MEAN CORPUSCULAR HEMOGLOBIN 31 pg (27-31); MEAN CORPUSCULAR HGB CONC 33 % (32-36); MEAN CORPUSCULAR VOLUME 94 fL (79.0-98.0); PLATELET COUNT (AUTO) 176 K/uL (130-430); RED BLOOD CELL COUNT(AUTO) 3.29 MIL/uL (4.2-6.2); RED CELL DISTRIBUTION WIDTH 14.7 % (9.0-15.0); WHITE BLOOD COUNT (AUTO) 13.8 K/uL (4.8-10.8)
--- NOTE | 2019-08-22 06:49 | NUR ---
Nutrition Update Jean Scale 13 noted. Pt admitted for Acute Renal Failure, Dehydration, rule out Sepsis Diet: Mechanical soft BMI: 27.4 kg/m2 RD to follow per nutrition care standards.
[2019-08-22 07:04] LABS: PHOSPHORUS 5.3 mg/dL (2.7-4.5); POTASSIUM 3.6 mmol/L (3.5-5.1); TOTAL BILIRUBIN 0.3 mg/dL (0.0-1.0)
--- NOTE | 2019-08-22 07:15 | NUR ---
ENDORSEMENT Pt care endorsed to dayshift RN using nursing SBAR.
[2019-08-22 07:36] LABS: CALCIUM 6.7 mg/dL (8.4-11.0); CREATININE 8.63 mg/dL (0.55-1.30)
[2019-08-22 08:06] LABS: ATYPICAL LYMPHOCYTES % 0 % (0-0); BAND % (MANUAL) 38 % (0-6); BASOPHILS % (MANUAL) 0 % (0-2); EOSINOPHILS % (MANUAL) 0 % (0-7); LYMPHOCYTES % (MANUAL) 5 % (20-46); METAMYELOCYTES % 1 % (0-0); MONOCYTES % (MANUAL) 16 % (0-11)
--- NOTE | 2019-08-22 09:20 | NUR ---
0740-Received patient lethrgic opens eyes at times to pain with ongoing levophed drip at 32 mcq/min, neosynephrine drip at 160mcq/min and D5 1/2 NS with 1 amp sodium bicarb as ordered. With Right PICC line dressing clean dry intact with biopatch in place. With flexiseal and stahl catheter in place. 0750-Dr Peace was notified of critical Co2 9 BUN [address] Webb was paged. Awaiting reply. 0820-Dr Webb was notified of critical results with new orders for ABG 0920-Dr Webb was notified of critical ABG results with new orders carried out.
[2019-08-22] MEDS ORDERED: SODIUM BICARBONATE 8.4% JECT 50 MEQ/50 ML SYRINGE IVP ONE (09:30)
[2019-08-22] MEDS ORDERED: SODIUM BICARBONATE 8.4% VIAL 50 MEQ/50 ML VIAL IV ONE ×2 (09:45→15:00)
--- NOTE | 2019-08-22 10:32 | NUR ---
Made rounds with Dr Peace at the bedside who spoke with Karin from the senior living, plan of care was discussed verbalized understanding. Dr Peace was notified that patient responds to name at times and is lethargic unable to have PO intake. Dr Peace was also notified of ABG results and Dr Justin orders.
[2019-08-22] MEDS: D5 IV SCH ×2 (11:10→22:28)
[2019-08-22] MEDS: [UNRECOGNIZED DRUG - OTHER] IV SCH ×2 (11:10→22:28)
[2019-08-22] MEDS: JECT IV SCH ×2 (11:10→22:28)
[2019-08-22] MEDS: SODIUM BICARBONATE 8.4% IV SCH ×2 (11:10→22:28)
[2019-08-22] MEDS ORDERED: MUPIROCIN 1 GM OIN.PF.APP NS SCH (11:15)
[2019-08-22] MEDS: MUPIROCIN 2% TOPICAL OINTMENT 22 GM NS SCH ×2 (11:15→21:24)
--- NOTE | 2019-08-22 11:30 | NUR ---
RECEIVED REPORT: RECEIVED REPORT FROM ARMANDO MICHAEL. PATIENT RESTING IN BED WITH EYES CLOSED, PATIENT WITHDRAWALS TO PAIN. NO ACUTE SIGNS OF RESP DISTRESS. RIGHT PICC LINE SITE INTACT AND PATENT, NO REDNESS/SWELLING TO SITE. SAFETY PRECAUTIONS IMPLEMENTED, CONTINUE TO MONITOR. BED AT LOWEST POSITION.
--- NOTE | 2019-08-22 11:37 | NUR ---
Made rounds with Faisal ROBERTS at the bedside. Oral care was done. PICC line intact. Report given to Augustin Fisher RN at the bedside. Dr Peace was notified of MRSA nares with new orders carried out Addendum: 08/22/19 at 1142 by Sarina Polo RN Made rounds with Faisal ROBERTS at the bedside. Oral care was done. PICC line intact. Report given to Augustin Fisher RN at the bedside. Dr Peace was notified of MRSA nares with new orders carried out.Contact precaution done
--- NOTE | 2019-08-22 11:37 | NUR ---
WOUND EVALUATION: Wound Consult received from Dr. Peace. Thank you, Dr. Peace, for the consult. [facility] [place] [facility] Isoflex MIKE mattress with low air loss therapy initiated, awake, non-verbal, non-responsive to verbal commands. Patient is unable to turn in bed independently. Jean Score is a 13. Past Medical History: Hypertension, Depression, Dementia, and Hyperlipidemia, Intellectually Impaired, Psychosis. Recent Labs: WBC 13.8, RBC 3.29, hemoglobin 10.0, hematocrit 30.8, sodium 131, BUN 98, creatinine 8.63, GFR 5, glucose 106, calcium 6.7, albumin 2.0, PT 13.8, PTT 36.3. Microbiology: Blood culture results 2 in progress. MRSA screen results positive. Stool WBC smear results negative. Stool C. difficile results in progress. Intrinsic factors that delay wound healing: Hypoalbuminemia. Extrinsic factors that delay wound healing: Immobility. Right knee has multiple dry, red excoriations. Wound Assessment: 1. Right Buttock: Pressure ulcer, present on admission. Wound bed has 100% yellow tissue. No odor, no drainage. Periwound intact. Wound measures 1.0 cm x 1.0 cm. Recommend: Cleanse wound with normal saline. Apply Venelex ointment to wound bed. Apply moisture barrier cream to adonay-wound. Cover with foam dressing. Perform wound care daily, and as needed for dressing soiling or dislodgement. 2. Left Buttock: Pressure ulcer, present on admission. Multiple small sites have 100% yellow tissue. No odor, no drainage. Periwounds intact. Total wound site measures 2.5 cm x 2.7 cm. Recommend: Cleanse wound with normal saline. Apply Venelex ointment to wound bed. Apply moisture barrier cream to adonay-wound. Cover with foam dressing. Perform wound care daily, and as needed for dressing soiling or dislodgement. 3. Gluteal Sulcus: Intertrigo with erythema and moisture associated skin damage, present on admission. Open area has 100% pink tissue. No odor, no drainage. Periwound and surrounding tissue has scar tissue. Wound measures 0.5 cm x 0.4 cm. 4. Gluteal Sulcus, inferior to site 3: Intertrigo with erythema and moisture associated skin damage, present on admission. Open area has 100% yellow tissue. No odor, no drainage. Periwound and surrounding tissue has scar tissue. Wound measures 1.2 cm x 0.4 cm. 5. Gluteal Sulcus, inferior to site 4: Intertrigo with erythema and moisture associated skin damage, present on admission. Open area has 60% yellow tissue, 40% pink tissue. No odor, no drainage. Periwound and surrounding tissue has scar tissue. Wound measures 3.3 cm x 0.5 cm. Recommend: Cleanse wounds with normal saline. Apply Venelex ointment to wound beds. Apply moisture barrier cream to adonay-wounds. Cover with foam dressings. Perform wound care daily, and as needed for dressing soiling or dislodgement. 6. Breast Folds: Intertrigo with Erythema, present on admission. 7. Abdominal Fold: Intertrigo with Erythema, present on admission. 8. Inguinal areas: Intertrigo with Erythema, present on admission. Recommend: Cleanse involved candy with mild soap and water. Pat dry. Apply antifungal powder to involved candy. Dust areas. Cut to size and insert Inter-dry AG cloths into involved candy. Perform site care BID. Replace Inter-dry AG cloths q5d and as needed for cloth soiling or dislodgement. 9. Right Lateral Hip: Area of purple ecchymosis, present on admission. Recommend: Offload site at all times. Continue to monitor site every shift. 10. Left Heel: Blanchable redness, present on admission. 11. Right Heel: Blanchable redness, present on admission. 12. Left Lateral Malleolus: Blanchable redness, present on admission. Also has an area of white scar tissue over area, bony area with no adipose tissue. 13. Right Lateral Malleolus: Blanchable redness, present on admission. Bony area with no adipose tissue. Recommend: Elevate, offload and float bilateral feet/heels/ankles with one pillow lengthwise under each extremity at all times. Place a foam dressing on Left Lateral Malleolus for protection. 14. General Body: General body (including face, head, trunk, extremities), has erythema and macular rash, present on admission. Recommend: Continue to monitor sites qshift. No dressings needed. Also recommend: Reposition patient [id number] only every 2 hours with pillow support and off-load pressure areas with pillows for pressure re-distribution. Offload, elevate and float bilateral feet/heels/ankles with pillows. Perform skin care and monitor skin integrity Q shift. Use moisture barrier cream on buttocks and other moisture susceptible areas QID and as needed for soiling. Maintain patient on a low air-loss mattress.
[2019-08-22] MEDS ORDERED: NYSTATIN 15 GM TOPICAL POWDER TP ONE (11:45)
[2019-08-22] MEDS ORDERED: BALSAM PERU/CASTOR OIL 60 GM OINT...G. TP ONE (11:45)
--- NOTE | 2019-08-22 11:47 | NUR ---
Dietitian Recommendations *Consider an alternate route of feeding/nutrition support if PO intake is not warranted. Please see Nutritional Assessment for details. MENDEZ, KEITH
--- NOTE | 2019-08-22 11:51 | NUR ---
Dr. Vital consult called to office. Spoke with Chiara.
--- NOTE | 2019-08-22 12:15 | NUR ---
INTUBATED: INTUBATED BY DR. RUBIO, RT AT BEDSIDE. PATIENT TOLERATED WELL. VENT SETTINGS: AC 20, TV 500, PEEP 5. PATIENT SATURATING AT 100% O2. RADIOLOGY NOTIFIED.
--- NOTE | 2019-08-22 12:20 | NUR ---
NG TUBE PLACEMENT: # 16 FR NG tube placed to RIGHT nare. Placement checked by auscultation of instilled air into stomach and aspiration of gastric contents. Tubing taped in place to prevent dislodging. Patient tolerated well.
[2019-08-22] MEDS ORDERED: MIDAZOLAM HCL 5 MG/5 ML VIAL ONE (12:24)
[2019-08-22] MEDS: PIPERACILLIN/TAZO 2.25G/DEX-IS 50 ML IV SCH ×3 (14:33→22:45)
[2019-08-22] MEDS ORDERED: HYDROCORTISONE SOD SUCC 100 MG/2 ML VIAL IVP ONE (15:00)
--- NOTE | 2019-08-22 16:50 | NUR ---
Dental Service Technician: DCPA PINKED EDGE SEWING MACHINE OPERATOR is unable to conduct a DCPA. Pt. is intubated. PINKED EDGE SEWING MACHINE OPERATOR received referral for pt. stating "No known family available" Armando Sprague stated pt. may need a mid-line. Addendum: 08/22/19 at 1710 by Shakila Trinh PINKED EDGE SEWING MACHINE OPERATOR Dental Service Technician follow up PINKED EDGE SEWING MACHINE OPERATOR attmepted to call [facility] where it is stated pt. came from. PINKED EDGE SEWING MACHINE OPERATOR called the phone number listed for Karen Ureña. The phone number is not working. PINKED EDGE SEWING MACHINE OPERATOR called the number listed for Nahed Weber [address] [facility], . phone number not working. PINKED EDGE SEWING MACHINE OPERATOR looked up on her phone the number to [facility] as it was not listed. the number, was dialed and there was no answer. PINKED EDGE SEWING MACHINE OPERATOR called ARMANDO Ruffin who stated, " The campus administrator of [employer] is at bedside". PINKED EDGE SEWING MACHINE OPERATOR spoke to the campus administrator, Karin cell phone [phone]. She stated pt. [facility] is a [facility], and her social media executive is Cyrus Shah, . They may know about a possible DPOA. There is also a nephew Luis Alberto West ph. [phone], possibly resides in [facility] as per Karin, campus administrator of [employer]. PINKED EDGE SEWING MACHINE OPERATOR thanked her for the info. PINKED EDGE SEWING MACHINE OPERATOR informed her someone may call her tomorrow to ask her questions pertaining to a Discharge Summary.
--- NOTE | 2019-08-22 17:13 | NUR ---
PAGING DR. RUBIO: PAGING DR. RUBIO REGARDING ABGS RESULTS.
[2019-08-22] MEDS: ATORVASTATIN 10 MG TABLET PO SCH (17:51)
--- NOTE | 2019-08-22 18:00 | NUR ---
1758 titrated fio2 to .40. hr 106 sat 100%. rn aware. Addendum: 08/22/19 at 1801 by Sasha Triana RT Amended: Links added.
[2019-08-22] MEDS ORDERED: CALCIUM GLUCONATE 2 GM in NS 100 ML IV ONE (18:15)
[2019-08-22] MEDS ORDERED: MAGNESIUM SULFATE 3 GM in D5W 100 ML IV ONE (18:15)
--- NOTE | 2019-08-22 19:15 | NUR ---
CALLED PHARMACY FOR DUE MEDS: CALLED PHARMACY AND SPOKE TO SERENITY REGARDING MAGNESIUM AND CALCIUM GLUCONATE. PER SERENITY HE SENT SOMEONE FROM PHARMACY TO BRING IT NOW. ENDORSE MEDICATION TO NOC ARMANDO ARAUZ. PER REGLA HE WILL GIVE MEDICATION.
--- NOTE | 2019-08-22 19:45 | NUR ---
ENDORSED: ENDORSED PLAN OF CARE TO NOC RN REGLA. ALL QUESTIONS ANSWERED.
--- NOTE | 2019-08-22 20:05 | NUR ---
initial pm note Received patient after report from am nurse. Patient is awake but unable to follow commands. Mechanical ventilation in place via ETT and settings as follows: AC 24, TV 500 FiO2 40% and tolerating well. Restraints in place BL wrists. Em catheter to gravity with minimun to no output; MD aware. Flexiseal in place draining liquid stool. will continue to monitor. Call light within reach as family at bedside.
--- NOTE | 2019-08-22 21:00 | NUR ---
call placed to Dr Dimas to report results of ABD's ordered by him. Waiting for call back.
[2019-08-22] MEDS: OLANZapine 5 MG TABLET PO SCH (21:24)
[2019-08-22] MEDS: PARoxetine HCL 20 MG TABLET PO SCH (21:24)
[2019-08-22] MEDS: MELATONIN 3 MG TABLET PO SCH (21:25)
[2019-08-22] MEDS: MIRTAZAPINE 15 MG TABLET PO SCH (21:26)
[2019-08-22] MEDS: NYSTATIN 15 GM TOPICAL POWDER TP SCH (21:26)
--- NOTE | 2019-08-22 22:33 | NUR ---
DR. MCKAY WELLS MADE AWARE OF ABGS AT THIS TIME. PER CHANGE AC TO 20 AND ABGS IN AM. WILL CARRY OUT ORDERED.
[2019-08-22] MEDS: HYDROCORTISONE SOD SUCC 100 MG/2 ML VIAL IVP SCH (22:38)
[2019-08-23] VITALS (29 sets, daily range): BP systolic 91–150
[2019-08-23] MEDS: NOREPINEPHRINE BITARTRATE 4 MG in D5W 246 ML IV PRN ×7 (00:14→23:08)
[2019-08-23] MEDS: PHENYLEPHRINE HCL 30 MG in NS 247 ML IV PRN ×3 (01:02→09:02)
[2019-08-23] MEDS ORDERED: PHENYLEPHRINE HCL 10 MG/ML VIAL (NEOSYNEPHRINE) ONE (01:05)
--- NOTE | 2019-08-23 03:16 | NUR ---
Blood pressure continues to be stable with mild changes on Neosynephrine 140 mcg/min. Will continue to reduce rate as per unit protocol.
[2019-08-23 06:14] LABS: HEMATOCRIT 28.1 % (36-48); HEMOGLOBIN 9.4 g/dL (12.0-16.0); MEAN CORPUSCULAR HEMOGLOBIN 30 pg (27-31); MEAN CORPUSCULAR HGB CONC 34 % (32-36); MEAN CORPUSCULAR VOLUME 91 fL (79.0-98.0); PLATELET COUNT (AUTO) 154 K/uL (130-430); RED CELL DISTRIBUTION WIDTH 14.3 % (9.0-15.0); WHITE BLOOD COUNT (AUTO) 20.9 K/uL (4.8-10.8)
[2019-08-23 06:40] LABS: ALBUMIN 1.7 g/dL (3.4-4.8); PHOSPHORUS 4.8 mg/dL (2.7-4.5); POTASSIUM 4.2 mmol/L (3.5-5.1); TOTAL BILIRUBIN 0.4 mg/dL (0.0-1.0)
[2019-08-23 06:46] LABS: INR 1.4 (0.8-1.2); PROTHROMBIN TIME 13.8 SECS (9.5-12.5)
[2019-08-23] MEDS: HYDROCORTISONE SOD SUCC 100 MG/2 ML VIAL IVP SCH ×3 (06:49→22:38)
[2019-08-23] MEDS: PIPERACILLIN/TAZO 2.25G/DEX-IS 50 ML IV SCH ×3 (06:49→22:38)
[2019-08-23] MEDS: INSULIN REGULAR, HUMAN 100 UNITS/ML, 10 ML VIAL (humuLIN R) SUBCUT PRN ×3 (06:56→23:23)
[2019-08-23 07:11] LABS: CALCIUM 5.6 mg/dL (8.4-11.0)
[2019-08-23 07:12] LABS: CREATININE 7.85 mg/dL (0.55-1.30)
[2019-08-23 07:40] LABS: FREE T4 (FREE THYROXINE) 0.8 ng/dL (0.6-1.6)
[2019-08-23 07:41] LABS: THYROID STIMULATING HORMONE 1.07 uIu/mL (0.34-4.82)
[2019-08-23] MEDS: LISINOPRIL 10 MG TABLET (PRINIVIL) PO SCH (07:43)
--- NOTE | 2019-08-23 07:50 | NUR ---
AM ASSESSMENT. PT MECHANICALLY VENTILATED, ORAL CARE RENDERED, GRIMACING HER FACE DURING CARE, MODERATE ORAL SECRETIONS OBTAINED, WITH MINIMAL BLOOD, PT DROWSY WHEN TALKED TO, REPOSITIONED PT TO HER SIDE, WRISTS RESTRAINTS REMOVED, DRESSINGS REMOVED FROM BOTH ARMS, SKIN TEARS PRESENT, CLEANSED SKIN TEARS WITH SALINE, PAT DRY THEN APPLIED NON ABSORBENT PAD AND COVERED WITH KERLIX GAUZE. WRISTS RESTRAINTS PLACED BACK AFTER CARE.
--- NOTE | 2019-08-23 08:00 | NUR ---
IV DRIPS. PT RECEIVING LEVOPHED DRIP AT 36 MCG/MIN,, AND NEOSYNEPHRINE AT 130 MCG/MIN, BLOOD PRESSURE MONITORED AND RECORDED, PT INTUBATED, SHAKES HER HEAD FOR A NO ANSWER, DENIES PAIN, BODY TEMP IN NORMAL RANGE, ISABELA HUGGER IN USE.
[2019-08-23] MEDS: ASCORBIC ACID 500 MG TABLET PO SCH (08:45)
[2019-08-23] MEDS: MUPIROCIN 2% TOPICAL OINTMENT 22 GM NS SCH ×2 (08:45→20:32)
[2019-08-23] MEDS: NYSTATIN 15 GM TOPICAL POWDER TP SCH ×2 (08:46→20:32)
[2019-08-23] MEDS: BALSAM PERU/CASTOR OIL 60 GM OINT...G. TP SCH (08:46)
[2019-08-23] MEDS: LINEZOLID 300 ML IV SCH ×2 (08:47→20:33)
[2019-08-23 09:24] LABS: BILIRUBIN,URINE NEGATIVE (NEGATIVE); BLOOD, URINE 3+ (NEGATIVE); CLARITY/URINE TURBID (CLEAR); COLOR,URINE YELLOW (YELLOW); GLUCOSE,URINE NEGATIVE (NEGATIVE); KETONES,URINE NEGATIVE (NEGATIVE); LEUKOCYTE ESTERASE ,URINE 3+ (NEGATIVE); NITRITE, URINE NEGATIVE (NEGATIVE); PROTEIN URINE 2+ (NEGATIVE); UROBILINOGEN,URINE 0.2 (0.2-1.0)
[2019-08-23 09:33] LABS: BAND % (MANUAL) 34 % (0-6); BASOPHILS % (MANUAL) 0 % (0-2); EOSINOPHILS % (MANUAL) 0 % (0-7); LYMPHOCYTES % (MANUAL) 10 % (20-46); MONOCYTES % (MANUAL) 11 % (0-11)
[2019-08-23 09:37] LABS: BACTERIA,URINE MODERATE /HPF (None Seen); MUCUS,URINE 1+ /LPF (None Seen); RBC,URINE 20-50 /HPF (0-3); WBC,URINE >100 /HPF (0-3)
[2019-08-23] MEDS ORDERED: CALCIUM GLUCONATE 3 GM in NS 100 ML IV ONE (09:45)
[2019-08-23] MEDS: JECT IV SCH ×2 (10:07→21:22)
[2019-08-23] MEDS: [UNRECOGNIZED DRUG - OTHER] IV SCH ×2 (10:07→21:22)
[2019-08-23] MEDS: SODIUM BICARBONATE 8.4% IV SCH ×2 (10:07→21:22)
[2019-08-23] MEDS: D5 IV SCH ×2 (10:07→21:22)
--- NOTE | 2019-08-23 10:36 | NUR ---
CLAM GROWER PT SEEN AND EXAMINED BY DR RUBIO.
--- NOTE | 2019-08-23 14:00 | NUR ---
NURSING. PT AWAKE AND VISITED BY HER NEPHEW MELISSA, UPDATE ON STATUS GIVEN TO FAMILY. TURNED AND REPOSITIONED PT OT HER SIDE, NO SIGNS OF RESPIRATORY DISTRESS.
--- NOTE | 2019-08-23 17:10 | NUR ---
. DR MOE IN THE ROOM, EXAMINING PT.
[2019-08-23 17:16] LABS: URINE SODIUM, RANDOM 55 mmol/L (40-220)
[2019-08-23] MEDS: ATORVASTATIN 10 MG TABLET PO SCH (17:50)
--- NOTE | 2019-08-23 19:55 | NUR ---
Initial PM note Received patient after report from day shift nurse. Mechanical ventilation in place via ETT 7.5 with settings AC 20, TV 500, FIO2 40% and peep 5+. On levophed drip to sustain blood pressure infusing at 16 mcg/min to picc line WADE. Em catheter in place draining urine by gravity. Flexiseal well placed and draining watery stool. patient has eyes opened but not making eye contact. Unable to follow commands and requires total care and assist. NGT in place and clamped. no signs of respiratory distress and no signs of pain noted. Will continue to monitor patient per unit protocol.
[2019-08-23] MEDS: PARoxetine HCL 20 MG TABLET PO SCH (20:33)
[2019-08-23] MEDS: MELATONIN 3 MG TABLET PO SCH (20:33)
[2019-08-23] MEDS: MIRTAZAPINE 15 MG TABLET PO SCH (20:34)
[2019-08-23] MEDS: OLANZapine 5 MG TABLET PO SCH (20:34)
[2019-08-23 21:28] LABS: CREATININE, URINE 283.5 mg/dL; MICROALBUMIN URINE RANDOM 17.1 ug/ml (NOT ESTABLISHED)
[2019-08-24] VITALS (33 sets, daily range): BP systolic 106–138
--- NOTE | 2019-08-24 02:00 | NUR ---
Patient resting comfortably with both eyes closed. Repositioned for comfort. Levophed drip reduced to 14 mcg/min. will continue to monitor patient tolerating changes on IV drip rate.
[2019-08-24] MEDS: NOREPINEPHRINE BITARTRATE 4 MG in D5W 246 ML IV PRN ×2 (04:33→09:37)
[2019-08-24] MEDS: HYDROCORTISONE SOD SUCC 100 MG/2 ML VIAL IVP SCH ×3 (05:36→21:40)
[2019-08-24] MEDS: PIPERACILLIN/TAZO 2.25G/DEX-IS 50 ML IV SCH ×3 (05:37→21:43)
[2019-08-24] MEDS: INSULIN REGULAR, HUMAN 100 UNITS/ML, 10 ML VIAL (humuLIN R) SUBCUT PRN (05:51)
[2019-08-24 05:54] LABS: BASOPHILS % (AUTO) 0.1 % (0.0-2.0); EOSINOPHILS % (AUTO) 0.1 % (0.0-4.0); HEMATOCRIT 26.7 % (36-48); HEMOGLOBIN 8.9 g/dL (12.0-16.0); LYMPHOCYTES # (AUTO) 0.4 K/uL (1.0-5.5); LYMPHOCYTES % (AUTO) 1.9 % (20.5-51.5); MEAN CORPUSCULAR HEMOGLOBIN 30 pg (27-31); MEAN CORPUSCULAR HGB CONC 33 % (32-36); MEAN CORPUSCULAR VOLUME 90 fL (79.0-98.0); MONOCYTES # (AUTO) 0.6 K/uL (0.0-1.0); MONOCYTES % (AUTO) 2.9 % (1.7-9.3); NEUTROPHILS # (AUTO) 19.3 K/uL (1.8-7.7); PLATELET COUNT (AUTO) 123 K/uL (130-430); RED BLOOD CELL COUNT(AUTO) 2.97 MIL/uL (4.2-6.2); WHITE BLOOD COUNT (AUTO) 20.4 K/uL (4.8-10.8)
[2019-08-24 06:11] LABS: ALBUMIN 1.7 g/dL (3.4-4.8); CREATININE 6.76 mg/dL (0.55-1.30); POTASSIUM 3.6 mmol/L (3.5-5.1); TOTAL BILIRUBIN 0.5 mg/dL (0.0-1.0)
[2019-08-24 06:35] LABS: CALCIUM 5.4 mg/dL (8.4-11.0)
--- NOTE | 2019-08-24 07:15 | NUR ---
Opening Note Received patient report via SBAR from endorsing RN
[2019-08-24] MEDS ORDERED: CALCIUM GLUCONATE 3 GM in NS 100 ML IV ONE ×2 (07:30→16:00)
[2019-08-24] MEDS: LISINOPRIL 10 MG TABLET (PRINIVIL) PO SCH (08:34)
[2019-08-24] MEDS: ASCORBIC ACID 500 MG TABLET PO SCH (08:34)
[2019-08-24] MEDS: MUPIROCIN 2% TOPICAL OINTMENT 22 GM NS SCH ×2 (08:39→21:44)
[2019-08-24] MEDS: NYSTATIN 15 GM TOPICAL POWDER TP SCH ×2 (08:40→21:45)
[2019-08-24] MEDS: BALSAM PERU/CASTOR OIL 60 GM OINT...G. TP SCH (08:40)
[2019-08-24] MEDS: [UNRECOGNIZED DRUG - OTHER] IV SCH ×2 (08:49→17:55)
[2019-08-24] MEDS: JECT IV SCH ×2 (08:49→17:55)
[2019-08-24] MEDS: D5 IV SCH ×2 (08:49→17:55)
[2019-08-24] MEDS: SODIUM BICARBONATE 8.4% IV SCH ×2 (08:49→17:55)
--- NOTE | 2019-08-24 09:15 | NUR ---
Round Dr. Vital at bedside assessing patient, physician entered orders
[2019-08-24] MEDS: LINEZOLID 300 ML IV SCH ×2 (09:37→21:40)
--- NOTE | 2019-08-24 14:00 | NUR ---
MD Round Dr. Rios at bedside assessing patient, physician entered orders
[2019-08-24 14:43] LABS: CREATININE 6.15 mg/dL (0.55-1.30); POTASSIUM 3.4 mmol/L (3.5-5.1)
[2019-08-24 14:56] LABS: CALCIUM 5.8 mg/dL (8.4-11.0)
--- NOTE | 2019-08-24 15:00 | NUR ---
MD Call Dr. Webb contacted regarding labs, physician provided orders
[2019-08-24] MEDS ORDERED: PANTOPRAZOLE SODIUM 40 MG/VIAL (PROTONIX) IVP ONE (15:30)
--- NOTE | 2019-08-24 17:30 | NUR ---
Round Dr. Webb at bedside assessing patient, physician entered orders
[2019-08-24] MEDS: ATORVASTATIN 10 MG TABLET PO SCH (17:54)
--- NOTE | 2019-08-24 18:00 | NUR ---
Round Dr. Peace at bedside, no new orders
[2019-08-24] MEDS ORDERED: POTASSIUM CHLORIDE 20 MEQ/PKT PACKET PO ONE (18:30)
--- NOTE | 2019-08-24 19:18 | NUR ---
Closing Note Patient report given to nightshift nurse via SBAR communication
--- NOTE | 2019-08-24 19:45 | NUR ---
Initial Pm note Received patient after report from day shift nurse. Awake and more alert as patient making eye contact and attempting to communicate. No signs of pain or respiratory distress noted at this time. Mechanical ventilation in place via ETT with settings AC 14 TV 500 FIO2 35 peep 5. Em catheter in place and draining urine to gravity. Flexiseal in place with liquid stool. patient continues with BL wrist restraints to avoid interruption of care. will continue to monitor as per unit protocol.
[2019-08-24] MEDS: MIRTAZAPINE 15 MG TABLET PO SCH (21:40)
[2019-08-24] MEDS: OLANZapine 5 MG TABLET PO SCH (21:40)
[2019-08-24] MEDS: CALCIUM 500 MG/TAB NG SCH (21:40)
[2019-08-24] MEDS: PARoxetine HCL 20 MG TABLET PO SCH (21:40)
[2019-08-24] MEDS: MELATONIN 3 MG TABLET PO SCH (21:43)
[2019-08-25] VITALS (34 sets, daily range): BP systolic 84–139
[2019-08-25] MEDS: INSULIN REGULAR, HUMAN 100 UNITS/ML, 10 ML VIAL (humuLIN R) SUBCUT PRN ×2 (00:28→12:45)
--- NOTE | 2019-08-25 02:30 | NUR ---
Blood pressure was noted to be 64/32 as patient is deeply sleeping and not responding to verbal commands. It was necessary to use touch in order to arouse patient due to effect of psych medications previously given. As precaution Levophed was started in order to maintain SBP above 90. will continue to monitor patient and medication effect.
--- NOTE | 2019-08-25 02:31 | NUR ---
blood pressure was immediately noted to be over 90 and second check SBP was above 100. Decision not to start Levophed was taken and will continue to monitor as per unit protocol
[2019-08-25] MEDS: [UNRECOGNIZED DRUG - OTHER] IV SCH (05:37)
[2019-08-25] MEDS: D5 IV SCH (05:37)
[2019-08-25] MEDS: SODIUM BICARBONATE 8.4% IV SCH (05:37)
[2019-08-25] MEDS: JECT IV SCH (05:37)
[2019-08-25] MEDS: PIPERACILLIN/TAZO 2.25G/DEX-IS 50 ML IV SCH ×3 (05:42→21:10)
[2019-08-25] MEDS: HYDROCORTISONE SOD SUCC 100 MG/2 ML VIAL IVP SCH ×3 (05:42→21:16)
[2019-08-25 05:53] LABS: BASOPHILS % (AUTO) 0.1 % (0.0-2.0); HEMATOCRIT 23.4 % (36-48); LYMPHOCYTES # (AUTO) 0.3 K/uL (1.0-5.5); LYMPHOCYTES % (AUTO) 2.2 % (20.5-51.5); MEAN CORPUSCULAR HEMOGLOBIN 30 pg (27-31); MEAN CORPUSCULAR HGB CONC 34 % (32-36); MEAN CORPUSCULAR VOLUME 89 fL (79.0-98.0); MONOCYTES # (AUTO) 0.4 K/uL (0.0-1.0); MONOCYTES % (AUTO) 2.5 % (1.7-9.3); NEUTROPHILS # (AUTO) 14.1 K/uL (1.8-7.7); PLATELET COUNT (AUTO) 91 K/uL (130-430); RED BLOOD CELL COUNT(AUTO) 2.64 MIL/uL (4.2-6.2); RED CELL DISTRIBUTION WIDTH 13.8 % (9.0-15.0); WHITE BLOOD COUNT (AUTO) 14.8 K/uL (4.8-10.8)
[2019-08-25 06:05] LABS: ALBUMIN 1.5 g/dL (3.4-4.8); CREATININE 5.54 mg/dL (0.55-1.30); POTASSIUM 3.1 mmol/L (3.5-5.1); TOTAL BILIRUBIN 0.4 mg/dL (0.0-1.0)
[2019-08-25 06:06] LABS: CALCIUM 6.1 mg/dL (8.4-11.0)
--- NOTE | 2019-08-25 07:00 | NUR ---
Shari West received sleeping with the HUB in the upright position, intubated using ETT Tube 7.5. Patient was able to respond to yes or no questions upon assessment. Patient has Flexi-Seal, stahl catheter, no Levophed, on Glucerna 1.5 @ 20cc. Patient is tolerating tube feeding well with no residual, also receiving D5 with 1/2 Normal Saline. Superficial wounds were photographed yesterday according to the chart, and the patient is wearing 's. Will continue to monitor the patient.
[2019-08-25] MEDS ORDERED: CALCIUM GLUCONATE 2 GM in NS 100 ML IV ONE (08:00)
[2019-08-25] MEDS ORDERED: COMMUNICATION ORDER XX ONE (08:15)
[2019-08-25] MEDS: CALCIUM 500 MG/TAB NG SCH ×3 (08:52→21:16)
[2019-08-25] MEDS: ASCORBIC ACID 500 MG TABLET PO SCH (08:52)
[2019-08-25] MEDS: PANTOPRAZOLE SODIUM 40 MG/VIAL (PROTONIX) IVP SCH (08:53)
[2019-08-25] MEDS: LINEZOLID 300 ML IV SCH ×2 (08:54→21:13)
[2019-08-25] MEDS ORDERED: POTASSIUM CHLORIDE 20 MEQ/PKT PACKET PO SCH (09:00)
--- NOTE | 2019-08-25 09:40 | NUR ---
RT NOTES Vent settings to SIMV [address] woodward's order. Pt was educated, nodded to confirm understanding. @0945 pt appears to cont. tolerating settings well. no signs of distress. will monitor pt.
[2019-08-25] MEDS: BALSAM PERU/CASTOR OIL 60 GM OINT...G. TP SCH (10:19)
[2019-08-25] MEDS: NYSTATIN 15 GM TOPICAL POWDER TP SCH ×2 (10:19→21:13)
[2019-08-25] MEDS: MUPIROCIN 2% TOPICAL OINTMENT 22 GM NS SCH ×2 (10:19→21:14)
--- NOTE | 2019-08-25 11:00 | NUR ---
Norepinephrine Needed Patient's blood pressure was 82/45, and PRN NOREPINEPHRINE was administered for 14 minutes per protocol until the blood pressure was 137/77.
[2019-08-25] MEDS: NOREPINEPHRINE BITARTRATE 4 MG in D5W 246 ML IV PRN (11:29)
--- NOTE | 2019-08-25 12:00 | NUR ---
Respiratory Therapist switched patient from AC to SIMV, attempting to wean patient off the vent.
[2019-08-25 12:03] LABS: NEUTROPHILS % (AUTO) 95.2 % (40.0-70.0)
--- NOTE | 2019-08-25 13:30 | NUR ---
Patient visited by Dr. Peace, and he increased tube feeding to 40 cc/hr of Glucerna 1.5.
[2019-08-25] MEDS: NACL 0.9% 1,000 ML IV SCH (13:48)
--- NOTE | 2019-08-25 14:48 | NUR ---
Nutrition F/U RD reviewed pt's current EMR record including diet Hx, physician notes, nursing notes, pertinent labs/meds/procedures, care trends, and care activity. Admitting Diagnosis: Acute Renal Failure, Dehydration, r/o Sepsis Medical History Comment: Since admission, pt found with septic shock, severe malnutrition, acute renal failure (improving), hypotension, and dehydration per MD note. Per EMR documentation, pt has edema to the lower extremities. Blood pressure 130/57, MAP 77mmHg. Levophed not initiated per RN note. Wound Evaluation (08/22/19): pressure ulcer to the right buttock, left buttock, intertrigo with erythema to the gluteal sulcus, breast folds, abdominal fold, inguinal areas, right lateral hip, and blanchable redness to the left heel, right heel, right and left lateral malleolus with rashes and erythema to the general body. All present on admission. Current Diet Order/Nutrition Support: Glucerna 1.5 at 20ml/hr with 100ml free water flush Q8h via NGT Provides: 720kcal, 40gPro, and 664ml of free fluids Subjective: Pt remains vent, not responsive to verbal stimuli upon RD visit. Glucerna 1.5 at 40ml/hr running at bedside with 394kcal enfused. Pt tolerating TF, rate increased per MD note. Glucerna 1.5 at 40ml/hr provides 1440kcal, 79gPro, 1029ml of fluids, which meets 81% lower end of kcal and 89% of upper end of protein est nutrition needs. Pertinent Medications: Protonix, Vit C, Olanzapine, Atorvastatin, Humulin R, Zofran, Levophed Pertinent Labs: (08/25/19) Na:127L, K:3.1L, BUN: 87H, Cr: 5.54H, eGFR 10L, POC: 130H, 152H, 138H Estimated Energy Expenditure (kcals/day) 4186-6614 kcal/day (30-35 kcal/kg Adj IBW for wound healing) Estimated Protein Required (g/day) 47-89 gm/day (0.8-1.5 gm/kg IBW for Renal Dz predialysis and wound healing) Estimated Fluid Required (l/day) per MD (Renal Failure) Problem/Etiology/Signs/Symptoms Increased nutrient needs r/t metabolic demands AEB estimated calories and protein for wound healing. *ongoing* Inadequate PO intake r/t current mental status AEB PO intake meeting <25% of est needs. *resolved, now on EN* Expected Outcomes/Goals Monitor provision of nutrition support w/ goal of pt meeting at least 80% of estimated nutritional needs, labs trending WNL, normal GI function, skin integrity/wt maintenance Dietitian Recommendations *Continue Glucerna 1.5 at 40ml/hr as tolerated, free water flush per physician order. *Meets 81% of lower end of kcal and 89% of upper end of protein est nutrition needs *Consider D/C Vit C, and add Walter BID for wound healing Follow Up High Risk: F/U in 2-3days
--- NOTE | 2019-08-25 15:03 | NUR ---
Dietitian Recommendations *Continue Glucerna 1.5 at 40ml/hr as tolerated, free water flush per physician order. *Meets 81% of lower end of kcal and 89% of upper end of protein est nutrition needs *Consider D/C Vit C, and add Walter BID for wound healing Please see Nutrition Follow Up for further details. LT, RD
--- NOTE | 2019-08-25 17:00 | NUR ---
WOUND CARE PATIENT RECIEVED DRESSING CHANGES ON ALL WOUNDS WITH PRESCRIBED OINTMENT. PATIENT'S LEGS FLOATED AND RIGHT THIGH FLOATED FOR THE FLEXI-SEAL. NISTATIN APPLIED TO FOLDS AND FOLDED TOWELS USED TO PROTECT SKIN. PATIENT BEING MOVED FREQUENTLY.
[2019-08-25] MEDS: ATORVASTATIN 10 MG TABLET NG SCH (18:03)
--- NOTE | 2019-08-25 19:23 | NUR ---
PATIENT ENDORSED TO MOBILE SOLUTIONS ARCHITECT: PATIENT IS COMFORTABLE, WATCHING TV, WITH THE HEAD OF THE BED IN THE UPRIGHT POSITION. BLOOD PRESSURE IS 134/64, HR 78, 02 SAT 100, AND PATIENT REPORTS NO PAIN OR COMPLAINT. URINAL AND FLEX-SEAL ARE BOTH NEARLY EMPTY. ROOM IS CLEAN.
--- NOTE | 2019-08-25 19:25 | NUR ---
PM ASSESSMENT Pt in bed with eyes open resting comfortably. No signs of acute distress or discomfort noted. Pt intubated with vent settings: SIMV 8, TV 500, FiO2 35% and PEEP of 5. Pt tolerating vent settings well with O2 sats @ 100% and even and unlabored breathing. Pt has a WADE picc infusing IVF. PICC c/d/i. NG tube noted to pt's R nare, infusing tubefeeding. Em cath noted draining urine to gravity. Flexiseal noted draining loose stool. Bilat wrist restraints noted, no signs of injury noted. Bed is locked and in lowest position, call light within reach, will cont to monitor pt.
[2019-08-25] MEDS: MIRTAZAPINE 15 MG TABLET NG SCH (21:15)
[2019-08-25] MEDS: PARoxetine HCL 20 MG TABLET NG SCH (21:16)
[2019-08-25] MEDS: OLANZapine 5 MG TABLET NG SCH (21:16)
[2019-08-25] MEDS: MELATONIN 3 MG TABLET NG SCH (21:17)
--- NOTE | 2019-08-25 22:00 | NUR ---
Pt in bed with eyes closed resting comfortably. No signs of acute distress or discomfort noted. Bed is locked and in lowest position, call light within reach, will cont to monitor pt.
[2019-08-26] VITALS (31 sets, daily range): BP systolic 96–125
--- NOTE | 2019-08-26 02:00 | NUR ---
Pt in bed with eyes closed resting comfortably. No signs of acute distress or discomfort noted. Pt repositioned at this time. Pt tolerated well. Bed is locked and in lowest position, call light within reach, will cont to monitor pt.
[2019-08-26] MEDS: NACL 0.9% 1,000 ML IV SCH ×2 (02:25→22:14)
--- NOTE | 2019-08-26 03:45 | NUR ---
CHG CHG bath given to pt at this time. Pt tolerated CHG well. Will cont to monitor pt.
[2019-08-26] MEDS: HYDROCORTISONE SOD SUCC 100 MG/2 ML VIAL IVP SCH ×3 (05:28→21:14)
[2019-08-26] MEDS: PIPERACILLIN/TAZO 2.25G/DEX-IS 50 ML IV SCH ×3 (05:28→21:14)
[2019-08-26 05:49] LABS: BASOPHILS % (AUTO) 0.1 % (0.0-2.0); EOSINOPHILS % (AUTO) 0.1 % (0.0-4.0); HEMATOCRIT 25.5 % (36-48); HEMOGLOBIN 8.4 g/dL (12.0-16.0); LYMPHOCYTES # (AUTO) 0.5 K/uL (1.0-5.5); LYMPHOCYTES % (AUTO) 3.5 % (20.5-51.5); MEAN CORPUSCULAR HEMOGLOBIN 30 pg (27-31); MEAN CORPUSCULAR HGB CONC 33 % (32-36); MEAN CORPUSCULAR VOLUME 90 fL (79.0-98.0); MONOCYTES # (AUTO) 0.4 K/uL (0.0-1.0); MONOCYTES % (AUTO) 3.2 % (1.7-9.3); NEUTROPHILS # (AUTO) 12.8 K/uL (1.8-7.7); NEUTROPHILS % (AUTO) 93.1 % (40.0-70.0); PLATELET COUNT (AUTO) 98 K/uL (130-430); RED BLOOD CELL COUNT(AUTO) 2.83 MIL/uL (4.2-6.2); RED CELL DISTRIBUTION WIDTH 13.7 % (9.0-15.0); WHITE BLOOD COUNT (AUTO) 13.7 K/uL (4.8-10.8)
[2019-08-26 06:39] LABS: ALBUMIN 1.7 g/dL (3.4-4.8); CREATININE 4.79 mg/dL (0.55-1.30); POTASSIUM 3.2 mmol/L (3.5-5.1); TOTAL BILIRUBIN 0.4 mg/dL (0.0-1.0)
[2019-08-26 06:50] LABS: CALCIUM 6.6 mg/dL (8.4-11.0)
--- NOTE | 2019-08-26 07:05 | NUR ---
Received shift report from night RN using SBAR
--- NOTE | 2019-08-26 07:05 | NUR ---
ENDORSEMENT Report given to oncoming dayshift RN using SBAR format and pt care was endorsed. No signs of acute distress or discomfort noted.
--- NOTE | 2019-08-26 08:00 | NUR ---
AM ASSESSMENT Pt alert and awake. No indications of pain or discomfort. Pt did indicate with hand jesters that her head is itchy. SR on monitor and saturating at 100% with Vent SIMV 8, FiO2 35%, TV 500, PEEP 5, PS 100. NS running at 70cc/hr with tube feeding glucerna @ 45cc/hr. No residual and patent. PICC WADE double lumen patent with flashback of blood. Flexi-seal leaking with fecal matter around rectal tube. Changed bedding and instilled an additional 10cc of NS. Will continue to monitor. Bed locked and in lowest position with call light in place.
--- NOTE | 2019-08-26 08:15 | NUR ---
Oral care provided. Pt tolerated well.
[2019-08-26] MEDS: MUPIROCIN 2% TOPICAL OINTMENT 22 GM NS SCH ×2 (08:25→21:15)
[2019-08-26] MEDS: NYSTATIN 15 GM TOPICAL POWDER TP SCH ×2 (08:25→21:15)
[2019-08-26] MEDS: BALSAM PERU/CASTOR OIL 60 GM OINT...G. TP SCH (08:25)
[2019-08-26] MEDS: PANTOPRAZOLE SODIUM 40 MG/VIAL (PROTONIX) IVP SCH (08:27)
[2019-08-26] MEDS: CALCIUM 500 MG/TAB NG SCH (08:27)
[2019-08-26] MEDS: ASCORBIC ACID 500 MG TABLET NG SCH (08:27)
[2019-08-26] MEDS: LINEZOLID 300 ML IV SCH ×2 (08:27→21:11)
[2019-08-26] MEDS: POTASSIUM CHLORIDE 20 MEQ/PKT PACKET NG SCH (08:27)
--- NOTE | 2019-08-26 08:30 | NUR ---
MD ROUNDS Dr Vital bedside. Orders received.
--- NOTE | 2019-08-26 10:00 | NUR ---
RT NOTES- SIMV 4 DECREASED RATE TO 4bpm PER ORDER. ARMANDO GOODSON NOTIFIED. WILL CONTINUE MONITORING.
--- NOTE | 2019-08-26 11:38 | NUR ---
Received shift report from night RN using KEYANA Addendum: 08/26/19 at 1139 by Aleksandr Rawls RN Time is for 07, will re-enter on correct time.
--- NOTE | 2019-08-26 12:30 | NUR ---
Wound Care provided to bilateral arms, sacrum, and buttocks. Skin care provided to inguinal areas along with breast folds. Washed perineal and perianal area. Flexi seal is leaking. Will continue to monitor. Changed gown and bedding.
[2019-08-26] MEDS ORDERED: CALCIUM CARBONATE 650 MG TABLET PO ONE (13:00)
[2019-08-26] MEDS ORDERED: CALCIUM 500 MG/TAB PO ONE (13:00)
--- NOTE | 2019-08-26 13:00 | NUR ---
MD ROUNDS Dr Webb bedside. Orders received to lower NS to 40cc/hr.
--- NOTE | 2019-08-26 14:30 | NUR ---
Was informed by RT Bonnie of red tinged deep tracheal suction. Possible from oral care provided earlier as Bonnie stated there were no red sputum @ 08:00. Will hold 16:00 oral care and continue to monitor.
--- NOTE | 2019-08-26 17:00 | NUR ---
PT resting with no signs of pain or distress. Pt is able to point and communicate with nodding of head. Slight weeping noted in upper right arm. Jose placed and supported with pillow for fluid return from edema. Bed locked and in lowest position. Will continue to monitor.
[2019-08-26] MEDS: ATORVASTATIN 10 MG TABLET NG SCH (17:15)
--- NOTE | 2019-08-26 19:05 | NUR ---
Endorsement provided to night RN using SBAR. Pt resting with no complaints of pain. Night RN bedside. Bed locked and in lowest position.
--- NOTE | 2019-08-26 19:10 | NUR ---
PM ASSESSMENT Pt in bed with eyes open resting comfortably. No signs of acute distress or discomfort noted. Pt intubated with vent settings: SIMV 4, TV 500, FiO2 35% and PEEP of 5, and PS 10. Pt tolerating vent settings well with O2 sats @ 100% and even and unlabored breathing. Pt has a WADE picc infusing IVF. PICC c/d/i. NG tube noted to pt's R nare, infusing tubefeeding. Em cath noted draining urine to gravity. Flexiseal noted draining loose stool. Bilat wrist restraints noted, no signs of injury noted. Bed is locked and in lowest position, call light within reach, will cont to monitor pt.
[2019-08-26] MEDS: OLANZapine 5 MG TABLET NG SCH (21:13)
[2019-08-26] MEDS: PARoxetine HCL 20 MG TABLET NG SCH (21:13)
[2019-08-26] MEDS: MIRTAZAPINE 15 MG TABLET NG SCH (21:14)
[2019-08-26] MEDS: MELATONIN 3 MG TABLET NG SCH (21:16)
[2019-08-27] VITALS (27 sets, daily range): BP systolic 101–139
--- NOTE | 2019-08-27 | NUR ---
CHG CHG bath given to pt at this time. Pt tolerated CHG bath well. No signs of acute distress or discomfort noted. Will cont to monitor pt.
--- NOTE | 2019-08-27 02:57 | NUR ---
Pt in bed with eyes closed resting comfortably. No signs of acute distress or discomfort noted. Pt's vent settings: SIMV 4, TV 500, FiO2 35%, PEEP of 5, PS 10. pt tolerating vent settings well with O2 sats @ 100% and even and unlabored breathing. Bed is locked and in lowest position, call light within reach, will cont to monitor pt.
--- NOTE | 2019-08-27 04:10 | NUR ---
Pt had a bowel movement at this time. Pericare performed and chucks replaced. Pt repositioned at this time. No signs of acute distress or discomfort noted. Bed is locked and in lowest position, call light within reach, will cont to monitor pt.
[2019-08-27] MEDS: HYDROCORTISONE SOD SUCC 100 MG/2 ML VIAL IVP SCH ×3 (05:25→21:16)
[2019-08-27] MEDS: PIPERACILLIN/TAZO 2.25G/DEX-IS 50 ML IV SCH ×3 (05:26→21:16)
[2019-08-27 07:00] LABS: CALCIUM 7.2 mg/dL (8.4-11.0); CREATININE 3.74 mg/dL (0.55-1.30)
--- NOTE | 2019-08-27 07:01 | NUR ---
ENDORSEMENT Report given to oncoming dayshift RN using SBAR format and pt care was endorsed. No signs of acute distress or discomfort noted.
--- NOTE | 2019-08-27 07:05 | NUR ---
Shift report received from night RN using SBAR.
[2019-08-27 07:29] LABS: BASOPHILS % (AUTO) 0.3 % (0.0-2.0); EOSINOPHILS % (AUTO) 0.2 % (0.0-4.0); HEMATOCRIT 24.5 % (36-48); LYMPHOCYTES # (AUTO) 0.6 K/uL (1.0-5.5); LYMPHOCYTES % (AUTO) 4.5 % (20.5-51.5); MEAN CORPUSCULAR HEMOGLOBIN 30 pg (27-31); MEAN CORPUSCULAR HGB CONC 33 % (32-36); MEAN CORPUSCULAR VOLUME 91 fL (79.0-98.0); MONOCYTES # (AUTO) 0.4 K/uL (0.0-1.0); MONOCYTES % (AUTO) 2.9 % (1.7-9.3); NEUTROPHILS # (AUTO) 11.7 K/uL (1.8-7.7); PLATELET COUNT (AUTO) 93 K/uL (130-430); RED BLOOD CELL COUNT(AUTO) 2.69 MIL/uL (4.2-6.2); RED CELL DISTRIBUTION WIDTH 14.1 % (9.0-15.0); WHITE BLOOD COUNT (AUTO) 12.7 K/uL (4.8-10.8)
--- NOTE | 2019-08-27 07:45 | NUR ---
AM ASSESSMENT Pt resting with no expressed signs of pain or discomfort. Afebrile. Alert and oriented to self and place. Non-verbal due to intubation. Size 7.5 with lip line of 25. NS running at 40cc/hr in WADE PICC. Dressing change need for sacrum/buttock area as flexiseal is leaking. Aspirated 50cc of water from bulb. Reinstilled water and will check for patency and connection. Will continue to monitor. Bed locked and in lowest position with call light in right hand.
--- NOTE | 2019-08-27 08:00 | NUR ---
Oral care provided Provided perineal and perianal care. Changed linens and SCD as they were soiled. Pt tolerated well.
[2019-08-27] MEDS: LINEZOLID 300 ML IV SCH ×2 (08:44→21:04)
[2019-08-27] MEDS: CALCIUM 500 MG/TAB PO SCH (08:45)
[2019-08-27] MEDS: ASCORBIC ACID 500 MG TABLET NG SCH (08:45)
[2019-08-27] MEDS: POTASSIUM CHLORIDE 20 MEQ/PKT PACKET NG SCH (08:45)
[2019-08-27] MEDS: MUPIROCIN 2% TOPICAL OINTMENT 22 GM NS SCH (08:45)
[2019-08-27] MEDS: PANTOPRAZOLE SODIUM 40 MG/VIAL (PROTONIX) IVP SCH (08:45)
[2019-08-27] MEDS: NYSTATIN 15 GM TOPICAL POWDER TP SCH ×2 (08:46→21:08)
[2019-08-27] MEDS: BALSAM PERU/CASTOR OIL 60 GM OINT...G. TP SCH (08:46)
[2019-08-27] MEDS ORDERED: CALCIUM 500 MG/TAB PO SCH (09:00)
--- NOTE | 2019-08-27 09:00 | NUR ---
Wound care provided for upper arm extremities. Pt tolerated well.
--- NOTE | 2019-08-27 10:30 | NUR ---
Pt in mild distress. Provided deep suction and it seemed to resolve issue. Noted <2cc of red sputum.
[2019-08-27 11:08] LABS: NEUTROPHILS % (AUTO) 92.1 % (40.0-70.0)
--- NOTE | 2019-08-27 11:50 | NUR ---
Pt extubated by RT Madelyn. Pt tolerated well. Saturating @ 100% on NC 2L. Lungs clear upper lobes bilaterally, diminished lower lobes. Will continue to monitor.
--- NOTE | 2019-08-27 11:55 | NUR ---
Restraints DC'd per MD order after extubation per Dr Vital who is bedside.
--- NOTE | 2019-08-27 12:08 | NUR ---
1155 PT EXTUBATED PLACED ON 2L NC. SAT 100% RN AWARE. Addendum: 08/27/19 at 1211 by Sasha Triana RT Amended: Links added.
--- NOTE | 2019-08-27 12:30 | NUR ---
MD ROUNDS Dr Webb bedside.
--- NOTE | 2019-08-27 16:35 | NUR ---
S.T. SWALLOW EVAL SWALLOW EVAL COMPLETED. PT PRESENTS W/ MOD ORAL DYSPHAGIA W/ ML-MOD BOLUS TRANSFER FOR PUREE. NO S/S OF ASPIRATION. REC: PUREE DIET. THIN LIQUIDS OK. NURSE HAMZAH NOTIFIED.
--- NOTE | 2019-08-27 17:02 | NUR ---
Nutrition F/U RD reviewed pt's current EMR record including diet Hx, physician notes, nursing notes, pertinent labs/meds/procedures, care trends, and care activity. Admitting Diagnosis: Acute Renal Failure, Dehydration, r/o Sepsis Medical History Comment: Since admission, pt found with septic shock, severe malnutrition, acute renal failure (improving), hypotension, and dehydration per MD note. Per EMR documentation, pt has edema to the lower extremities. Blood pressure 130/57, MAP 77mmHg. Levophed not initiated per RN note. Wound Evaluation (08/22/19): pressure ulcer to the right buttock, left buttock, intertrigo with erythema to the gluteal sulcus, breast folds, abdominal fold, inguinal areas, right lateral hip, and blanchable redness to the left heel, right heel, right and left lateral malleolus with rashes and erythema to the general body. All present on admission. Current Diet Order/Nutrition Support: Glucerna 1.5 at 20 ml/hr, Free Water Flush: 100 (Q8h per VALDEMAR order) via NGT Provides: 720 kcal/day, 40 gm protein/day, and 664 ml of free water/day Subjective: Pt was extubated today before noon per EMR. Pt was seen by ST for swallow eval; ST rec for pureed diet w/ thin liquids. Pt reported preferences for Burger Dilan and mashed potatoes. TF Glucerna 1.5 seen infusing at 40 ml/hr -- minimal residuals noted per EMR. Pertinent Medications: os-fabricio, solu-cortef, VIT C, protonix IV, piperacillin/tazobactam IV, SSI Pertinent Labs: (08/27/19) Na 138 WNL (improved), K 3 L, BUN 78 H, CRE 3.74 H, eGFR 13 L, POC BG 125H Estimated Energy Expenditure (kcals/day) 6883-7148 kcal/day (30-35 kcal/kg Adj IBW for wound healing) Estimated Protein Required (g/day) 47-89 gm/day (0.8-1.5 gm/kg IBW for Renal Dz predialysis and wound healing) Estimated Fluid Required (l/day) per MD (Renal Failure) Problem/Etiology/Signs/Symptoms Increased nutrient needs r/t metabolic demands AEB estimated calories and protein for wound healing. *ongoing* Inadequate PO intake r/t current mental status AEB PO intake meeting <25% of est needs. *resolved, now on EN, w/ possible plans for advancement of PO diet* Expected Outcomes/Goals Monitor provision of nutrition support w/ goal of pt meeting at least 80% of estimated nutritional needs, labs trending WNL, normal GI function, skin integrity/wt maintenance Dietitian Recommendations * Recommend CCHO, pureed diet * Consider D/C NGT feeding once pt is tolerating diet greater than 50% Follow Up High Risk: F/U in 2-3 days Addendum: 08/27/19 at [address] CORRECTION: Dietitian Recommendations * Recommend CCHO, pureed diet w/ Walter BID * Consider D/C NGT feeding once pt is tolerating diet greater than 50%
[2019-08-27] MEDS: ATORVASTATIN 10 MG TABLET NG SCH (17:05)
--- NOTE | 2019-08-27 17:07 | NUR ---
Dietitian Recommendations * Recommend CCHO, pureed diet w/ Walter BID * Consider D/C NGT feeding once pt is tolerating diet greater than 50% LP, RD Please refer to Nutrition F/U for details.
--- NOTE | 2019-08-27 19:00 | NUR ---
Endorsement given to night RN using SBAR. Pt watching tv. No signs of pain or distress. On NC 2L. Bed locked and in lowest position with call light in place. TBFG running @ 40cc/hr.
--- NOTE | 2019-08-27 20:00 | NUR ---
AWAKE, ALERT, ORIENTED X4. IN NO APPARENT DISTRESS. VSS. DENIES PAIN. ON O2 AT 2L/MIN/NC. BOWEL SOUNDS (+). EDEMA NOTED ON EXTREMITIES. GARSIA CATH PATENT DRAINING CLOUDY MAXWELL URINE TO GRAVITY. FLEXISEAL IN PLACE WITH WATERY BROWN STOOL NOTED. SR. NGT FEEDING WITH GLUCERNA 1.5 INFUSING AT 40CC/HR. RESIDUAL CHECK 10CC. WADE PICC LINE MILLICENT D/I.
[2019-08-27] MEDS: OLANZapine 5 MG TABLET NG SCH (21:05)
[2019-08-27] MEDS: MIRTAZAPINE 15 MG TABLET NG SCH (21:05)
[2019-08-27] MEDS: PARoxetine HCL 20 MG TABLET NG SCH (21:05)
[2019-08-27] MEDS: MELATONIN 3 MG TABLET NG SCH (21:07)
--- NOTE | 2019-08-27 22:00 | NUR ---
DOZES ON AND OFF. PLEASANT. COMPLIANT. HS CARE RENDERED. ASSISTS WITH TURNING.
[2019-08-28] VITALS (19 sets, daily range): BP systolic 102–148
--- NOTE | 2019-08-28 | NUR ---
SLEPT INTERMITTENTLY. ACCU-CHEK 147, NO INSULIN DUE PER SLIDING SCALE COV.NGT FLUSHED WITH 100CC H2O. CONTACT ISOLATION OBSERVED.
[2019-08-28] MEDS: INSULIN REGULAR, HUMAN 100 UNITS/ML, 10 ML VIAL (humuLIN R) SUBCUT PRN ×2 (00:11→06:25)
--- NOTE | 2019-08-28 02:00 | NUR ---
SOUNDLY ASLEEP. TURNED AND REPOSITIONED.
--- NOTE | 2019-08-28 03:55 | NUR ---
NGT FEEDING DC'D AT THIS TIME, PLACED ON MECHANICAL SOFT DIET. NGT LEFT IN PLACE, CLAMPED FOR THE MEAN TIME.
--- NOTE | 2019-08-28 04:00 | NUR ---
SLEPT FOR LONG PERIODS OF TIME. WADE PICC LINE DRSG CHANGED USING ASEPTIC TECHNIQUE. CHG BATH GIVEN. STOOL OOZING AROUND ANUS, CLEANED. TARYN-CARE GIVEN. GARSIA CARE, BACK CARE, SKIN CARE DONE. Z-GUARD APPLIED TO PERINEUM, SKIN CARE RENDERED. PARTIAL LINEN CHANGE. ASSISTS WITH TURNING. MIKE PROC WELL.
[2019-08-28] MEDS: NACL 0.9% 1,000 ML IV SCH ×2 (05:36→22:07)
[2019-08-28] MEDS: PIPERACILLIN/TAZO 2.25G/DEX-IS 50 ML IV SCH ×3 (05:36→22:00)
[2019-08-28] MEDS: HYDROCORTISONE SOD SUCC 100 MG/2 ML VIAL IVP SCH ×3 (05:36→22:06)
--- NOTE | 2019-08-28 06:00 | NUR ---
HAIR SHAMPOOED EARLIER. UO GOOD. ACCU-CHEK 108, NO INSULIN DUE PER SLIDING SCALE COV. FLEXISEAL 300CC OUT. REMAINS IN GUARDED BUT STABLE CONDITION.
[2019-08-28 06:56] LABS: ALBUMIN 1.4 g/dL (3.4-4.8); CALCIUM 7.3 mg/dL (8.4-11.0); CREATININE 2.44 mg/dL (0.55-1.30); POTASSIUM 3.5 mmol/L (3.5-5.1); TOTAL BILIRUBIN 0.5 mg/dL (0.0-1.0)
--- NOTE | 2019-08-28 07:15 | NUR ---
Opening Note Received bedside report from endorsing RN for continuation of care. Received patient awake in bed, watching TV. Patient denies any SOB or pain. No signs or symptoms of acute distress noted. Bed locked in lowest position, bed alarm on, and call light within reach. Fall and safety precautions in place.
[2019-08-28] MEDS: LINEZOLID 300 ML IV SCH ×2 (08:09→22:08)
[2019-08-28] MEDS: CALCIUM 500 MG/TAB PO SCH (08:09)
[2019-08-28] MEDS: PANTOPRAZOLE SODIUM 40 MG/VIAL (PROTONIX) IVP SCH (08:09)
[2019-08-28] MEDS: POTASSIUM CHLORIDE 20 MEQ/PKT PACKET NG SCH (08:09)
[2019-08-28] MEDS: NYSTATIN 15 GM TOPICAL POWDER TP SCH ×2 (08:10→21:00)
[2019-08-28] MEDS: BALSAM PERU/CASTOR OIL 60 GM OINT...G. TP SCH (08:10)
[2019-08-28] MEDS: ASCORBIC ACID 500 MG TABLET NG SCH (08:10)
[2019-08-28 08:17] LABS: BASOPHILS % (AUTO) 0.1 % (0.0-2.0); EOSINOPHILS # (AUTO) 0.1 K/uL (0.0-0.4); EOSINOPHILS % (AUTO) 0.5 % (0.0-4.0); HEMATOCRIT 23.9 % (36-48); LYMPHOCYTES # (AUTO) 0.5 K/uL (1.0-5.5); LYMPHOCYTES % (AUTO) 4.2 % (20.5-51.5); MEAN CORPUSCULAR HEMOGLOBIN 30 pg (27-31); MEAN CORPUSCULAR HGB CONC 33 % (32-36); MEAN CORPUSCULAR VOLUME 91 fL (79.0-98.0); MONOCYTES # (AUTO) 0.6 K/uL (0.0-1.0); MONOCYTES % (AUTO) 5.4 % (1.7-9.3); NEUTROPHILS # (AUTO) 9.7 K/uL (1.8-7.7); NEUTROPHILS % (AUTO) 89.8 % (40.0-70.0); PLATELET COUNT (AUTO) 85 K/uL (130-430); RED BLOOD CELL COUNT(AUTO) 2.64 MIL/uL (4.2-6.2); RED CELL DISTRIBUTION WIDTH 14.1 % (9.0-15.0); WHITE BLOOD COUNT (AUTO) 10.8 K/uL (4.8-10.8)
--- NOTE | 2019-08-28 09:00 | NUR ---
Wound Care/BM Wound care performed per wound care guidelines. Patient had large loose BM. Pericare done. Patient cleaned, turned, and repositioned. Bed linens changed. Patient tolerated well.
--- NOTE | 2019-08-28 12:05 | NUR ---
Alma Rosa DRAPERY EXAMINER at bedside examining patient.
--- NOTE | 2019-08-28 13:58 | NUR ---
Dr. Vital at bedside examining patient. New orders received.
--- NOTE | 2019-08-28 14:20 | NUR ---
Dr. Webb in to see patient. No new orders.
--- NOTE | 2019-08-28 14:42 | NUR ---
Page out to Dr. Peace for orders. Waiting for call back.
--- NOTE | 2019-08-28 15:30 | NUR ---
Spoke with Dr. Peace. Per Dr. Peace, patient is stable to transfer to telemetry unit.
--- NOTE | 2019-08-28 16:40 | NUR ---
Transfer to Telemetry Patient transferred to telemetry unit room 126-A on hospital bed, continuous panel monitor, and oxygen using ACLS protocol. ACLS RN present at all times. Endorsed bedside report to MST RN using SBAR approach for continuation of care.
--- NOTE | 2019-08-28 17:00 | NUR ---
RN OPENING NOTE PATIENT'S RECEIVED FROM ICU , ALERT ORIENTED X4, DENIES PAIN OR DISCOMFORT. PATIENT WAS ASSESSED, VITAL SIGNS ARE STABLE. BED AT LOW POSITION AND CALL LIGHT WITHIN REACH WILL CONTINUE TO MONITOR.
--- NOTE | 2019-08-28 18:50 | NUR ---
RN CLOSING NOTE PATIENT BLOOD SUGAR WAS MEASURED TO BE WITHIN NORMAL LEVEL, PATIENT GOT NO COVERAGE. PATIENT WAS SERVED HER DINNER, HELPED WITH SETTING HER TRAY, BED AT LOW POSITION, WILL CONTINUE TO MONITOR AND WILL ENDORSE TO NEXT SHIFT.
[2019-08-28] MEDS: ATORVASTATIN 10 MG TABLET NG SCH (18:58)
--- NOTE | 2019-08-28 19:45 | NUR ---
INITIAL NOTE AT INITIAL ASSESSMENT, PATIENT IS RESTING IN BED, STABLE, NO SIGNS OF RESPIRATORY DISTRESS. PATIENT VERBALIZES NO PAIN. PLAN OF CARE FOR THE EVENING IS COMMUNICATED WITH THE PATIENT. PATIENT SUCCESSFULLY DEMONSTRATES USAGE OF CALL LIGHT AT THIS TIME. BED IS LOCKED, ALARMED, AND AT THE LOWEST LEVEL. FALL, SAFETY, ISOLATION, RESPIRATORY, AND ASPIRATION PRECAUTIONS WILL BE TAKEN THROUGHOUT THE SHIFT.
--- NOTE | 2019-08-28 21:45 | NUR ---
NOTE SCHEDULED MEDICATIONS GIVEN AT THIS TIME, PATIENT TOLERATED WELL. SHE IS STABLE, NO SIGNS OF RESPIRATORY DISTRESS. CALL LIGHT PLACED WITHIN REACH. BED IS LOCKED, ALARMED, AND AT THE LOWEST LEVEL.
[2019-08-28] MEDS: PARoxetine HCL 20 MG TABLET NG SCH (22:05)
[2019-08-28] MEDS: OLANZapine 5 MG TABLET NG SCH (22:05)
[2019-08-28] MEDS: MIRTAZAPINE 15 MG TABLET NG SCH (22:05)
[2019-08-28] MEDS: MELATONIN 3 MG TABLET NG SCH (22:10)
--- NOTE | 2019-08-28 23:45 | NUR ---
HYGIENE NOTE HYGIENE CARE PROVIDED AT THIS, PATIENT TOLERATED WELL. FRESH LINENS PROVIDED. SHE IS REPOSITIONED FOR COMFORT. CALL LIGHT PLACED WITHIN REACH. BED IS LOCKED, ALARMED, AND AT THE LOWEST LEVEL.
[2019-08-29 00:33] VITALS: BP_SYST 148
--- NOTE | 2019-08-29 01:45 | NUR ---
NOTE PATIENT IS SLEEPING, STABLE, NO SIGNS OF RESPIRATORY DISTRESS. CALL LIGHT WITHIN REACH. BED IS LOCKED, ALARMED, AND AT THE LOWEST LEVEL.
--- NOTE | 2019-08-29 03:45 | NUR ---
NOTE PATIENT IS SLEEPING, STABLE, NO SIGNS OF RESPIRATORY DISTRESS. CALL LIGHT WITHIN REACH. BED IS LOCKED, ALARMED, AND AT THE LOWEST LEVEL.
[2019-08-29] MEDS: HYDROCORTISONE SOD SUCC 100 MG/2 ML VIAL IVP SCH ×3 (05:30→22:29)
--- NOTE | 2019-08-29 05:45 | NUR ---
NOTE PATIENT IS RESTING IN BED, STABLE, NO SIGNS OF RESPIRATORY DISTRESS. CALL LIGHT WITHIN REACH. BED IS LOCKED, ALARMED, AND AT THE LOWEST LEVEL.
--- NOTE | 2019-08-29 06:45 | NUR ---
CLOSING NOTE BLOOD SUGAR CHECK AT THIS TIME REQUIRED NO INSULIN COVERAGE PER SSI ORDERED BY MD. AT THIS TIME, PATIENT IS RESTING IN BED, STABLE, NO SIGNS OF RESPIRATORY DISTRESS. BED IS LOCKED, ALARMED, AND AT THE LOWEST LEVEL. FALL, SAFETY, RESPIRATORY, ISOLATION , AND ASPIRATION PRECAUTIONS HAVE BEEN IN PLACE THROUGHOUT THE SHIFT. WILL CONTINUE TO MONITOR UNTIL SHIFT REPORT IS GIVEN AT BEDSIDE TO AM NURSE.
[2019-08-29 07:17] LABS: BASOPHILS % (AUTO) 0.1 % (0.0-2.0); EOSINOPHILS % (AUTO) 0.1 % (0.0-4.0); HEMATOCRIT 24.2 % (36-48); LYMPHOCYTES # (AUTO) 0.4 K/uL (1.0-5.5); LYMPHOCYTES % (AUTO) 3.9 % (20.5-51.5); MEAN CORPUSCULAR HEMOGLOBIN 30 pg (27-31); MEAN CORPUSCULAR HGB CONC 33 % (32-36); MEAN CORPUSCULAR VOLUME 91 fL (79.0-98.0); MONOCYTES # (AUTO) 0.2 K/uL (0.0-1.0); MONOCYTES % (AUTO) 2.2 % (1.7-9.3); NEUTROPHILS # (AUTO) 9.9 K/uL (1.8-7.7); NEUTROPHILS % (AUTO) 93.7 % (40.0-70.0); RED BLOOD CELL COUNT(AUTO) 2.65 MIL/uL (4.2-6.2); RED CELL DISTRIBUTION WIDTH 13.8 % (9.0-15.0); WHITE BLOOD COUNT (AUTO) 10.6 K/uL (4.8-10.8)
--- NOTE | 2019-08-29 07:25 | NUR ---
AM ROUNDS: PATIENT AWAKE DURING ROUNDS. CONTACT ISOLATION PRECAUTION RENDERED. GARSIA IN PLACE.FLEXI SEAL DRAINING DARK COLOR WATERY STOOLS IN THE BAG. NO DISTRESS.CONTINUE TO MONITOR.
[2019-08-29 07:41] LABS: ALBUMIN 1.7 g/dL (3.4-4.8); CALCIUM 7.5 mg/dL (8.4-11.0); CREATININE 1.95 mg/dL (0.55-1.30); TOTAL BILIRUBIN 0.4 mg/dL (0.0-1.0)
[2019-08-29 07:50] LABS: PLATELET COUNT (AUTO) 81 K/uL (130-430)
[2019-08-29 07:53] LABS: POTASSIUM 2.9 mmol/L (3.5-5.1)
[2019-08-29 08:32] VITALS: BP_SYST 147
[2019-08-29] MEDS: LINEZOLID 300 ML IV SCH (08:33)
[2019-08-29] MEDS: POTASSIUM CHLORIDE 20 MEQ/PKT PACKET NG SCH (08:33)
[2019-08-29] MEDS: PANTOPRAZOLE SODIUM 40 MG/VIAL (PROTONIX) IVP SCH (08:33)
[2019-08-29] MEDS: CALCIUM 500 MG/TAB PO SCH (08:33)
[2019-08-29] MEDS: ASCORBIC ACID 500 MG TABLET NG SCH (08:33)
--- NOTE | 2019-08-29 08:33 | NUR ---
Med Pass: Due po meds given,with no problem.
[2019-08-29] MEDS ORDERED: POTASSIUM CHLORIDE 20 MEQ/PKT PACKET PO ONE (11:30)
[2019-08-29] MEDS: BALSAM PERU/CASTOR OIL 60 GM OINT...G. TP SCH (11:37)
[2019-08-29] MEDS: NYSTATIN 15 GM TOPICAL POWDER TP SCH ×2 (11:38→20:20)
--- NOTE | 2019-08-29 11:43 | NUR ---
Blood sugar: Blood vxdgf=907ya/dl,Humulin R 2 units subq given per sliding scale. With no adverse reactions noted.
[2019-08-29] MEDS: INSULIN REGULAR, HUMAN 100 UNITS/ML, 10 ML VIAL (humuLIN R) SUBCUT PRN (11:49)
[2019-08-29 13:27] VITALS: BP_SYST 141
[2019-08-29] MEDS ORDERED: PIPERACILLIN/TAZO 2.25G/DEX-IS 50 ML IV SCH (14:00)
--- NOTE | 2019-08-29 16:00 | NUR ---
WOUND EVALUATION: Wound Consult received from Dr. Peace. Thank you, Dr. Peace, for the consult. Patient received in a [place] Bed with an Isoflex MIKE mattress with low air loss therapy, awake, alert, oriented x 2. Patient is unable to turn in bed with some assist. Jean Score is a 15. Past Medical History: Hypertension, Psychosis, Depression, Hyperlipidemia, Dementia, Intellectually Impaired. Recent Labs: WBC 10.6, RBC 2.65, hemoglobin 8.0, hematocrit 24.2, potassium 2.9, chloride 108, BUN 52, creatinine 1.95, GFR 27, glucose 149, POC glucose 154, calcium 7.5, alkaline phosphatase 173, albumin 1.7, serum total protein 5.4, PT 13.8, INR 1.4, PTT 43.8. Microbiology: Blood culture results 2 negative. MRSA screen results positive. Stool WBC smear results negative. Stool C. difficile results negative. Intrinsic factors that delay wound healing: Hypoalbuminemia. Extrinsic factors that delay wound healing: Immobility. Right knee has multiple dry, red excoriations. Wound Assessment: 1. Right Buttock: Pressure ulcer, present on admission. Wound bed has 95% yellow tissue, 5% pink tissue. No odor, no drainage. Periwound intact. Wound measures 1.0 cm x 0.5 cm. Recommend continue: Cleanse wound with normal saline. Apply Venelex ointment to wound bed. Apply Calmoseptine cream to adonay-wound. Cover with foam dressing. Perform wound care daily, and as needed for dressing soiling or dislodgement. 2. Left Buttock: Pressure ulcer, present on admission. Appears to have resolved. Recommend continue: Cleanse wound with mild soap and water. Pat dry apply Calmoseptine cream to involved area. Perform site care 4 times a day, and as needed for soiling. 3. Gluteal Sulcus: Intertrigo with erythema and moisture associated skin damage, present on admission. Open area has 90% pink tissue, 10% red tissue. No odor, small sanguineous drainage. Periwound and surrounding tissue has scar tissue. Wound measures 6.0 cm x 0.5 cm. 4. Gluteal Sulcus, inferior to site 3: Appears to have merged with site 3. 5. Gluteal Sulcus, inferior to site 4: Appears to have merged with site 3. Recommend continue: Cleanse wound with normal saline. Apply Calmoseptine cream to open area and adonay-wound. Apply Venelex ointment to any portion of wound bed not covered by Calmoseptine cream. Cover with foam dressing (diagonally). Perform wound care daily, and as needed for dressing soiling or dislodgement. 6. Breast Folds: Intertrigo with Erythema, present on admission. Appears to have resolved. 7. Abdominal Fold: Intertrigo with Erythema, present on admission. Now pink in color. Improving. 8. Inguinal areas: Intertrigo with Erythema, present on admission. Now pink in color. Improving. Recommend continue: Cleanse involved candy with mild soap and water. Pat dry. Apply antifungal powder to involved candy. Dust areas. Cut to size and insert Inter-dry AG cloths into involved candy. Perform site care BID. Replace Inter-dry AG cloths q5d and as needed for cloth soiling or dislodgement. 9. Right Lateral Hip: Area of purple ecchymosis, present on admission. Has not opened or progressed. Recommend continue: Offload site at all times. Continue to monitor site every shift. 10. Left Heel: Blanchable redness, present on admission. Appears to have resolved. 11. Right Heel: Blanchable redness, present on admission. Appears to have resolved. 12. Left Lateral Malleolus: Blanchable redness, present on admission. Also has an area of white scar tissue over area, bony area with no adipose tissue. 13. Right Lateral Malleolus: Blanchable redness, present on admission. Bony area with no adipose tissue. Appears to have resolved. Recommend continue: Elevate, offload and float bilateral feet/heels/ankles with one pillow lengthwise under each extremity at all times. Place a foam dressing on Left Lateral Malleolus for protection. 14. General Body: General body (including face, head, trunk, extremities), has erythema and macular rash, present on admission. Recommend continue: Continue to monitor sites qshift. No dressings needed. 15. Right posterior thigh: Skin tear. Site has 100% pink tissue. No odor, no drainage. Periwound intact. Site measures 1.2 cm x 1.0 cm. Recommend continue: Cleanse wound with mild soap and water. Pat dry apply Calmoseptine cream to involved area. Perform site care 4 times a day, and as needed for soiling. 16. Right posterior thigh, inferior to site 15: Skin tear. Site has 90% pink tissue, 10% red tissue. No odor, no drainage. Periwound intact. Site measures 1.8 cm x 1.4 cm. Recommend continue: Cleanse wound with normal saline. Apply Venelex ointment to wound bed. Apply Calmoseptine cream to adonay-wound. Cover with foam dressing. Perform wound care daily, and as needed for dressing soiling or dislodgement. 17. Left forearm: Skin tear. Sites has 70% pink tissue, 10% red tissue, 10% yellow tissue, 10% skin lateral aspect of periwound. No odor, no drainage. Periwound intact. Surrounding tissue has ecchymosis. Measures 5.2 cm x 3.0 cm. 18. Right forearm: Multiple skin tears. Sites have 95% white tissue, 5% pink tissue. No odor, no drainage. Periwounds intact. Surrounding tissue has ecchymosis. Recommend continue: Cleanse skin tears with normal saline. Apply Venelex ointment to open skin tears. Apply SurePrep to open skin tears. Cover with non-adhesive foam dressings. Wrap with Fan wrap. Perform skin tears care daily, and as needed for dressing soiling or dislodgement. Also recommend continue: Reposition patient [id number] only every 2 hours with pillow support and off-load pressure areas with pillows for pressure re-distribution. Offload, elevate and float bilateral feet/heels/ankles with pillows. Perform skin care and monitor skin integrity Q shift. Use moisture barrier cream on buttocks and other moisture susceptible areas QID and as needed for soiling. Maintain patient on a low air-loss mattress.
[2019-08-29] MEDS: ATORVASTATIN 10 MG TABLET NG SCH (17:18)
--- NOTE | 2019-08-29 17:20 | NUR ---
Blood Sugar: Blood wmrge=914dj/dl,no insulin needed per sliding scale.
[2019-08-29 17:24] VITALS: BP_SYST 153
--- NOTE | 2019-08-29 18:39 | NUR ---
Closing Notes: Patient ate dinner.For Linda evaluation as ordered. Call light with in reach. Bed locked at lowest position. Bed alarm on.Safety measures rendered.Maintained on contact isolation precaution. Continue to monitor.
--- NOTE | 2019-08-29 19:30 | NUR ---
Opening Note Received report from david RN, patient resting in bed, A/Ox3, no signs of acute distress, no complaints of pain, even and unlabored breathing on room air, WADE PICC intact and infusing well, Em draining to gravity, Flexi-seal in place and draining to gravity, safety and fall precautions in place, bed locked and in lowest position, bed alarm on, three side rails up, call light within reach, contact isolation precautions in place, will continue to monitor.
[2019-08-29 20:00] VITALS: BP_SYST 155
[2019-08-29] MEDS: NACL 0.9% 1,000 ML IV SCH (20:18)
[2019-08-29] MEDS: OLANZapine 5 MG TABLET NG SCH (20:19)
[2019-08-29] MEDS: MELATONIN 3 MG TABLET NG SCH (20:19)
[2019-08-29] MEDS: PARoxetine HCL 20 MG TABLET NG SCH (20:19)
[2019-08-29] MEDS: MIRTAZAPINE 15 MG TABLET NG SCH (20:19)
--- NOTE | 2019-08-29 23:10 | NUR ---
RN Rounds Patient resting in bed, awake watching TV, no signs of acute distress, no complaints of pain, tolerating room air, WADE PICC intact and infusing well, Em draining to gravity, Flexi-seal in place and draining to gravity, safety and fall precautions in place, contact isolation precautions in place, call light with patient, will continue to monitor.
[2019-08-30 00:16] VITALS: BP_SYST 126
--- NOTE | 2019-08-30 01:20 | NUR ---
Blood Sugar Patient's blood sugar is 144. No insulin coverage needed per insulin sliding scale, safety and fall precautions in place, call light with patient, will continue to monitor.
--- NOTE | 2019-08-30 03:10 | NUR ---
RN Rounds Patient resting in bed, eyes closed, no signs of acute distress, no complaints of pain, tolerating room air room air, WADE PICC intact and infusing well, Em draining to gravity, Flexi-seal in place and draining to gravity, safety and fall precautions in place, contact isolation precautions in place, call light with patient, will continue to monitor.
--- NOTE | 2019-08-30 05:45 | NUR ---
Blood Sugar Patient's blood sugar is 124. No insulin coverage needed per insulin sliding scale, safety and fall precautions in place, call light with patient, will continue to monitor.
[2019-08-30] MEDS: HYDROCORTISONE SOD SUCC 100 MG/2 ML VIAL IVP SCH ×2 (05:47→22:24)
--- NOTE | 2019-08-30 07:09 | NUR ---
Closing Note Patient resting in bed, no signs of acute distress, no complaints of pain, even and unlabored breathing on room air, WADE PICC intact and infusing well, Em draining to gravity, Flexi-seal in place and draining to gravity, safety and fall precautions in place, bed locked and in lowest position, bed alarm on, three side rails up, call light within reach, contact isolation precautions in place, will endorse care to dayshift RN.
--- NOTE | 2019-08-30 07:20 | NUR ---
AM ROUNDS: UPDATES GIVEN BY NIGHT NURSE LUIZ.PATIENT AWAKE WATCHING TV. CALL LIGHT WITH IN REACH. BED LOCKED AT LOWEST POSITION. BED ALARM ON.GARSIA AND FLEXI SEAL IN PLACE. CONTACT ISOLATION PRECAUTION RENDERED.NO ACUTE DISTRESS.
[2019-08-30 07:56] VITALS: BP_SYST 158
--- NOTE | 2019-08-30 08:40 | NUR ---
MED PASS: DUE PO MEDS GIVEN,WITH NO PROBLEM.
[2019-08-30] MEDS: POTASSIUM CHLORIDE 20 MEQ/PKT PACKET NG SCH (09:02)
[2019-08-30] MEDS: NYSTATIN 15 GM TOPICAL POWDER TP SCH ×2 (09:02→22:26)
[2019-08-30] MEDS: BALSAM PERU/CASTOR OIL 60 GM OINT...G. TP SCH (09:02)
[2019-08-30] MEDS: CALCIUM 500 MG/TAB PO SCH (09:03)
[2019-08-30] MEDS: ASCORBIC ACID 500 MG TABLET NG SCH (09:03)
[2019-08-30] MEDS: PANTOPRAZOLE SODIUM 40 MG/VIAL (PROTONIX) IVP SCH (09:03)
--- NOTE | 2019-08-30 11:39 | NUR ---
BLOOD SUGAR: BLOOD SUGAR TAKEN,NO INSULIN NEEDED PER SLIDING SCALE.
[2019-08-30 12:25] LABS: EOSINOPHILS # (AUTO) 0.1 K/uL (0.0-0.4); EOSINOPHILS % (AUTO) 0.5 % (0.0-4.0); HEMATOCRIT 26.8 % (36-48); HEMOGLOBIN 8.7 g/dL (12.0-16.0); LYMPHOCYTES # (AUTO) 0.5 K/uL (1.0-5.5); LYMPHOCYTES % (AUTO) 3.8 % (20.5-51.5); MEAN CORPUSCULAR HEMOGLOBIN 30 pg (27-31); MEAN CORPUSCULAR HGB CONC 33 % (32-36); MEAN CORPUSCULAR VOLUME 91 fL (79.0-98.0); MONOCYTES # (AUTO) 0.4 K/uL (0.0-1.0); MONOCYTES % (AUTO) 3.3 % (1.7-9.3); NEUTROPHILS # (AUTO) 12.1 K/uL (1.8-7.7); NEUTROPHILS % (AUTO) 92.4 % (40.0-70.0); PLATELET COUNT (AUTO) 98 K/uL (130-430); RED BLOOD CELL COUNT(AUTO) 2.93 MIL/uL (4.2-6.2); RED CELL DISTRIBUTION WIDTH 14.1 % (9.0-15.0); WHITE BLOOD COUNT (AUTO) 13.1 K/uL (4.8-10.8)
[2019-08-30 13:06] VITALS: BP_SYST 155
[2019-08-30 13:18] LABS: CALCIUM 7.7 mg/dL (8.4-11.0); CREATININE 1.38 mg/dL (0.55-1.30); POTASSIUM 3.1 mmol/L (3.5-5.1)
--- NOTE | 2019-08-30 13:30 | NUR ---
RN ROUNDS: PATIENT RESTING. NO NEEDS THIS TIME.
[2019-08-30] MEDS ORDERED: HYDROCORTISONE SOD SUCC 100 MG/2 ML VIAL IVP SCH (14:00)
--- NOTE | 2019-08-30 15:01 | NUR ---
MORTEZA PLANNING Order for LTAC eval. Called & spoke w toyin Sahu in am driving states would call back. Received call from Elda Shah from [facility] wanting pt update, informed of order for LTAC. States she is aware of [facility] & thinks [facility] would be nephews preference since he lives there, to call nephew. Have not received call back called & spoke w toyin Sahu Quinn malagon, ph [phone], explained LTAC informed had Choices, the ones closest in area: [facility], [facility], [place], [place], [place]. States would prefer [facility], choices letter done. States wants to discuss w pt first before makes final decision, will be in tomorrow to speak with pt. States even though mental disability she is able to understand him somewhat & wants to talk to her first. Updated morteza Nelson tool and production planner.
--- NOTE | 2019-08-30 15:36 | NUR ---
Nutrition F/U RD reviewed pt's current EMR record including diet Hx, physician notes, nursing notes, pertinent labs/meds/procedures, care trends, and care activity. Admitting Diagnosis: Acute Renal Failure, Dehydration, r/o Sepsis Medical History Comment: Since admission, pt found with septic shock, severe malnutrition, acute renal failure (improving), hypotension, and dehydration per MD note. Per EMR documentation, pt has edema to the lower extremities. Blood pressure 130/57, MAP 77mmHg. Levophed not initiated per RN note. Wound Evaluation (08/22/19): pressure ulcer to the right buttock, left buttock, intertrigo with erythema to the gluteal sulcus, breast folds, abdominal fold, inguinal areas, right lateral hip, and blanchable redness to the left heel, right heel, right and left lateral malleolus with rashes and erythema to the general body. All present on admission. Current Diet Order/Nutrition Support: Mechanical soft, CCHO low carb-45 gm x2 days Subjective: Pt was seen seen by ST for swallow eval 08/27/19; ST rec for pureed diet w/ thin liquids; however, physician approved pt for mechanical soft, diabetic-friendly diet instead. Pt reported that she has been tolerating diet well w/ fair/good appetite -- ate most of her breakfast and lunch today. Per EMR, PO intakes averaged 51% x9 meals since last RD visit. INSTITUTIONAL COOK at bedside providing care. RD offered ONS and wound healing supplement -- pt agreeable to try for optimal nutrition/ Pertinent Medications: os-fabricio, solu-cortef, VIT C, protonix IV, SSI, remeron Pertinent Labs: (08/29/19) K 2.9 L, BUN 52 H, CRE 1.95 H, eGFR 27 L, POC BG 124 H, BG 149 H Estimated Energy Expenditure (kcals/day) 1218-8511 kcal/day (30-35 kcal/kg Adj IBW for wound healing) Estimated Protein Required (g/day) 47-89 gm/day (0.8-1.5 gm/kg IBW for Renal Dz predialysis and wound healing) Estimated Fluid Required (l/day) per MD (Renal Failure) Problem/Etiology/Signs/Symptoms Increased nutrient needs r/t metabolic demands AEB estimated calories and protein for wound healing. *ongoing* Inadequate PO intake r/t current mental status AEB PO intake meeting <25% of est needs. *improving* Expected Outcomes/Goals Monitor provision of nutrition support w/ goal of pt meeting at least 80% of estimated nutritional needs, labs trending WNL, normal GI function, skin integrity/wt maintenance Dietitian Recommendations * Recommend mechanical soft, CCHO low carb-45 gm diet w/ Walter BID and Glucerna BID (ONS and wound healing supplement provide ~630 kcal/day, 25 gm protein/day) Follow Up Moderate Risk: F/U in 3-5 days
[2019-08-30 16:11] VITALS: BP_SYST 165
--- NOTE | 2019-08-30 16:24 | NUR ---
RN ROUNDS: NO ACUTE DISTRESS. SAFETY MEASURES RENDERED.
[2019-08-30] MEDS: ATORVASTATIN 10 MG TABLET NG SCH (17:45)
--- NOTE | 2019-08-30 17:45 | NUR ---
BLOOD SUGAR: BLOOD SUGAR TAKEN,NO INSULIN NEEDED PER SLIDING SCALE.
--- NOTE | 2019-08-30 19:15 | NUR ---
END OF SHIFT: PATIENT RESTING. UPDATES GIVEN TO NIGHT NURSE LUIZ. FLEXI SEAL OUT.RIGHT UPPER ARM PICC LINE IN PLACE.GARSIA IN SITU. NO NEEDS THIS TIME. SAFETY MEASURES RENDERED. CONTINUE TO MONITOR.
--- NOTE | 2019-08-30 19:30 | NUR ---
Opening Note Received report from david RN, patient resting in bed, awake, A/Ox3, no signs of acute distress, no complaints of pain at this time, even and unlabored breathing on room air, WADE PICC intact and infusing fluids well, Em draining to gravity. Safety and fall precautions in place, bed locked and in lowest position, bed alarm on, three side rails up, call light with patient, contact isolation precautions in place, will continue to monitor.
[2019-08-30 20:00] VITALS: BP_SYST 142
[2019-08-30] MEDS: MIRTAZAPINE 15 MG TABLET NG SCH (22:24)
[2019-08-30] MEDS: OLANZapine 5 MG TABLET NG SCH (22:24)
[2019-08-30] MEDS: PARoxetine HCL 20 MG TABLET NG SCH (22:24)
[2019-08-30] MEDS: MELATONIN 3 MG TABLET NG SCH (22:26)
--- NOTE | 2019-08-30 22:30 | NUR ---
RN Rounds Patient resting in bed, awake, no signs of acute distress, no complaints of pain, tolerating room air, WADE PICC intact and infusing well, Em draining to gravity, safety and fall precautions in place, contact isolation precautions in place, call light with patient, will continue to monitor.
[2019-08-30] MEDS: NACL 0.9% 1,000 ML IV SCH (23:27)
--- NOTE | 2019-08-30 23:34 | NUR ---
Blood Sugar Patient's blood sugar is 120. No insulin coverage needed per insulin sliding scale, safety and fall precautions in place, call light with patient, will continue to monitor.
[2019-08-31] VITALS: BP_SYST 131
--- NOTE | 2019-08-31 00:30 | NUR ---
Incontinence care Patient had a loose BM. Incontinence care rendered by this RN and Sandra STOUT. Patient is clean, dry, and repositioned. Safety and fall precautions in place, call light with patient, will continue to monitor.
--- NOTE | 2019-08-31 02:42 | NUR ---
RN Rounds Patient resting in bed, eyes closed, no signs of acute distress, no changes, tolerating room air, WADE PICC intact and infusing well, Em draining to gravity. Safety and fall precautions in place, contact isolation precautions in place, call light with patient, will continue to monitor.
--- NOTE | 2019-08-31 04:20 | NUR ---
RN Rounds Patient resting in bed, eyes closed asleep, no signs of acute distress, no changes in status, tolerating room air room air, WADE PICC intact and infusing well, Em draining to gravity, safety and fall precautions in place, contact isolation precautions in place, call light with patient, will continue to monitor.
--- NOTE | 2019-08-31 06:18 | NUR ---
Blood Sugar Patient's blood sugar is 128. No insulin coverage needed per insulin sliding scale, safety and fall precautions in place, call light with patient, will continue to monitor.
--- NOTE | 2019-08-31 06:28 | NUR ---
Closing Note Patient resting in bed, awake, no signs of acute distress, no complaints of pain, even and unlabored breathing on room air, WADE PICC intact and infusing fluids well, Em draining to gravity, dressing to right FA, and buttocks complete per wound care nurse and MD order. Safety and fall precautions in place, contact isolation precautions in place, bed locked and in lowest position, bed alarm on, three side rails up, call light with patient, will continue to monitor.
[2019-08-31 07:30] LABS: ALBUMIN 1.7 g/dL (3.4-4.8); CALCIUM 7.5 mg/dL (8.4-11.0); CREATININE 1.14 mg/dL (0.55-1.30); POTASSIUM 3.3 mmol/L (3.5-5.1); TOTAL BILIRUBIN 0.3 mg/dL (0.0-1.0)
[2019-08-31 07:56] LABS: BASOPHILS % (AUTO) 0.1 % (0.0-2.0); EOSINOPHILS # (AUTO) 0.2 K/uL (0.0-0.4); EOSINOPHILS % (AUTO) 1.3 % (0.0-4.0); HEMATOCRIT 23.2 % (36-48); LYMPHOCYTES # (AUTO) 0.6 K/uL (1.0-5.5); LYMPHOCYTES % (AUTO) 4.9 % (20.5-51.5); MEAN CORPUSCULAR HEMOGLOBIN 31 pg (27-31); MEAN CORPUSCULAR HGB CONC 34 % (32-36); MEAN CORPUSCULAR VOLUME 92 fL (79.0-98.0); MONOCYTES # (AUTO) 0.5 K/uL (0.0-1.0); MONOCYTES % (AUTO) 4.1 % (1.7-9.3); NEUTROPHILS # (AUTO) 11.5 K/uL (1.8-7.7); NEUTROPHILS % (AUTO) 89.6 % (40.0-70.0); RED BLOOD CELL COUNT(AUTO) 2.53 MIL/uL (4.2-6.2); RED CELL DISTRIBUTION WIDTH 13.8 % (9.0-15.0); WHITE BLOOD COUNT (AUTO) 12.8 K/uL (4.8-10.8)
[2019-08-31 08:00] VITALS: BP_SYST 150
--- NOTE | 2019-08-31 08:00 | NUR ---
ASSUMPTION OF CARE: RECEIVED PT A/A/OX4, DX:RISK FOR FLUID VOLUME EXCESS, R/T ACUTE RENAL FAILURE, VSS, AFEBRILE, BREATH SOUNDS ARE CLEAR, BREATHING UNLABORED, COLOR IS PALE, SKIN WARM, DRY TO TOUCH, IV SITE INTACT, PATENT, NO REDNESS OR SWELLING, POSITIONED FOR COMFORT, CALL LIGHT PLACED WITHIN REACH, WILL CONT' TO MONITOR AND ASSESS.
--- NOTE | 2019-08-31 09:00 | NUR ---
UI DEVELOPER DESIGNER: MORNING MEDS GIVEN, PER ORDERED BY Anna, TOLERATED WELL, REORIENTED TO CALL LIGHT, PLACED WITHIN REACH, WILL CONT' TO MONITOR AND ASSESS.
[2019-08-31 09:12] LABS: HEMOGLOBIN 7.9 g/dL (12.0-16.0)
[2019-08-31] MEDS: CALCIUM 500 MG/TAB PO SCH (09:13)
[2019-08-31] MEDS: ASCORBIC ACID 500 MG TABLET NG SCH (09:13)
[2019-08-31] MEDS: POTASSIUM CHLORIDE 20 MEQ/PKT PACKET NG SCH (09:13)
[2019-08-31] MEDS: PANTOPRAZOLE SODIUM 40 MG/VIAL (PROTONIX) IVP SCH (09:14)
[2019-08-31] MEDS: HYDROCORTISONE SOD SUCC 100 MG/2 ML VIAL IVP SCH (09:15)
[2019-08-31] MEDS: NYSTATIN 15 GM TOPICAL POWDER TP SCH ×2 (09:16→20:30)
[2019-08-31] MEDS: BALSAM PERU/CASTOR OIL 60 GM OINT...G. TP SCH (09:17)
--- NOTE | 2019-08-31 12:00 | NUR ---
GLUCOSE MONITORING: BLOOD SUGAR ZVRVE=[id number], NO COVERAGE REQUIRED, NEEDS MET, CALL LIGHT PLACED WITHIN REACH, WILL CONT' TO MONITOR AND ASSESS.
[2019-08-31 12:02] VITALS: BP_SYST 151
--- NOTE | 2019-08-31 12:26 | NUR ---
Case mgt: Left message for Dr. Peace-re: pt accepted at [facility] [place]--we need dc order for pt--Nurse Maryuri updated that I left message w/ and to f/u for dc order to LT[facility]--pt is isolation-[facility]--TOREY ROBERTS
[2019-08-31 12:52] LABS: PLATELET COUNT (AUTO) 95 K/uL (130-430)
--- NOTE | 2019-08-31 15:11 | NUR ---
Case mgt: Per [facility] coordinator, pt is accepted to [facility] after 7pm today--Nurse Wahl not answering phone at this time-TOREY ROBERTS Addendum: 08/31/19 at 1546 by Leslie PRIDE DCP spoke to [employer] try to reach nurse, made her aware pt was accepted to [facility] ([phone]) Rm 315F, transportation arranged with [facility] ([phone]) 7:30pm P/U. Patient packet taken to nurse station.
[2019-08-31 16:29] VITALS: BP_SYST 153
--- NOTE | 2019-08-31 17:00 | NUR ---
GLUCOSE MONITORING: BLOOD SUGAR KYYAB=[id number], NO COVERAGE REQUIRED, NEEDS MET, CALL LIGHT PLACED WITHIN REACH, WILL CONT' TO MONITOR AND ASSESS.
[2019-08-31] MEDS ORDERED: MAGNESIUM OXIDE 400 MG TABLET PO ONE (17:30)
[2019-08-31] MEDS: ATORVASTATIN 10 MG TABLET NG SCH (17:42)
--- NOTE | 2019-08-31 18:00 | NUR ---
DISCHARGE: PT HAS ORDER FOR DISCHARGE TO [facility], WILL GO TO ROOM 315-F, CALL AND GAVE REPORT TO NURSES CALLY RN, PT IS AWARE, WILL CONT' WITH POC.
[2019-08-31 18:08] VITALS: BP_SYST 153
--- NOTE | 2019-08-31 19:30 | NUR ---
Pt is fully awake, alert and oriented x4. Pt is awaiting transfer to [facility]. No c/o pain or discomfort. PICC in WADE is intact. Em Cath to gravity drainage noted with clear yellowish urine. Call light is with pt and bed alarm is on.
--- NOTE | 2019-08-31 19:49 | NUR ---
[facility] CALLED AND NOTIFIED STAFF THAT THEY ARE RUNNING LATE TO CIGAR PACKING EXAMINER THE PATIENT. NEW CIGAR PACKING EXAMINER TIME ESTIMATED AT 2044. PRIMARY CARE NURSE GAIL MADE AWARE.
[2019-08-31] MEDS: OLANZapine 5 MG TABLET NG SCH (20:29)
[2019-08-31] MEDS: PARoxetine HCL 20 MG TABLET NG SCH (20:29)
[2019-08-31] MEDS: MIRTAZAPINE 15 MG TABLET NG SCH (20:29)
[2019-08-31] MEDS: MELATONIN 3 MG TABLET NG SCH (20:30)
--- NOTE | 2019-08-31 20:30 | NUR ---
Scheduled HS medications given and no difficulty swallowing noted.
--- NOTE | 2019-08-31 21:44 | NUR ---
Pt was transferred to [facility] in [place] with all her belongings via [facility] in stable condition. PICC in [facility] was flushed with 10ml normal saline, saline locked and capped. Em cath emptied. lunchroom monitor removed and given to Director Dermatology. Wrist ID band removed and placed in the shredder. Plain ID band with pt's name and placed on pt's wrist.
[2019-09-01] MEDS ORDERED: HYDROCORTISONE SOD SUCC 100 MG/2 ML VIAL IVP SCH (09:00)
--- NOTE | 2019-09-01 18:00 | NUR ---
DISCHARGE: PT HAS ORDER FOR DISCHARGE TO [facility], WILL GO TO ROOM 315-F, CALL AND GAVE REPORT TO NURSES CALLY ROBERTS, PT IS AWARE, WILL CONT' WITH POC. Addendum: 09/01/19 at 2038 by Maryuri Ramos RN WRONG DATE AND TIME
== END 2019-08-31 21:44 | DRG 870 ==
LOC: SED 13:35 → STU 17:02 → SIC 18:30 → SMU 08-28 17:44 → STU 08-28 18:27
PROVIDERS: ADMIT Internal Medicine; ATTEND Internal Medicine
PROC: 02HV33Z Insertion of Infusion Device into Superior Vena Cava, Percutaneous Approach (ICD-10-PCS; 2019-08-21)
PROC: B548ZZA Ultrasonography of Superior Vena Cava, Guidance (ICD-10-PCS; 2019-08-21)
PROC: 5A1955Z Respiratory Ventilation, Greater than 96 Consecutive Hours (ICD-10-PCS; principal; 2019-08-22)
PROC: 0BH17EZ Insertion of Endotracheal Airway into Trachea, Via Natural or Artificial Opening (ICD-10-PCS; 2019-08-22)
PROC: 0BP1XDZ Removal of Intraluminal Device from Trachea, External Approach (ICD-10-PCS; 2019-08-28)
DX: A41.9 Sepsis, unspecified organism (principal); E43 Unspecified severe protein-calorie malnutrition; J18.9 Pneumonia, unspecified organism; J96.00 Acute respiratory failure, unspecified whether with hypoxia or hypercapnia; R65.21 Severe sepsis with septic shock; K85.90 Acute pancreatitis without necrosis or infection, unspecified; N17.9 Acute kidney failure, unspecified; E87.2 Acidosis; N39.0 Urinary tract infection, site not specified; J44.1 Chronic obstructive pulmonary disease with (acute) exacerbation; J44.0 Chronic obstructive pulmonary disease with (acute) lower respiratory infection; K52.9 Noninfective gastroenteritis and colitis, unspecified; E86.0 Dehydration; D64.9 Anemia, unspecified; D69.6 Thrombocytopenia, unspecified; E78.5 Hyperlipidemia, unspecified; E86.1 Hypovolemia; F03.90 Unspecified dementia, unspecified severity, without behavioral disturbance, psychotic disturbance, mood disturbance, and anxiety; L26 Exfoliative dermatitis; F32.9 Major depressive disorder, single episode, unspecified; I10 Essential (primary) hypertension; Z68.27 Body mass index [BMI] 27.0-27.9, adult; Z79.899 Other long term (current) drug therapy
CPT/HCPCS: 36415; 36600; 71045; 76770; 80048; 80053; 80061; 81000-TC; 82043; 82140-TC; 82150-TC; 82306; 82570; 82570-TC; 82803-TC; 82962; 83605; 83690-TC; 83735-TC; 83880; 83970; 84100-TC; 84302-TC; 84439; 84443-TC; 84550-TC; 85007; 85025; 85027; 85610-TC; 85730-TC; 87040-TC; 87070-TC; 87081; 87086; 87205-TC; 87230-TC; 89055; 92610-GN; 93005; 94002; 94003; 94640; 94760; 96361; 96374; 99291; C1751; C9113; G0378; J0610; J0696; J1720; J1815; J1956; J2020; J2060; J2250; J2270; J2370; J2543; J3475; J7030; J7040; J7050; J7060